=== PATIENT | female | born 2000 | race Caucasian/White ===

== ENCOUNTER 2023-03-18 16:19 | Emergency (ER) | payer OTHER, SELFPAY ==
--- OUTSIDE RECORDS SUMMARY | 2023-03-18 16:24 | XMS_ITS | Continuity of Care Document ---
Author Name [facility] Organization [facility] Care Team Providers Care Play Therapist Name Role Phone [facility] Unavailable Unavailable Allergies, Adverse Reactions, Alerts Combined list of allergies from Department of Defense and Veterans Affairs facilities. It does not include entries that were removed or entered in error. Substance Category Reaction Severity Reaction type Status Date Reported Comments Source No Known Allergies Drug allergy (disorder) active 05/16/2020 SERGIO Mann Encounters Combined list of: 1) Encounters from Department of Veterans Affairs facilities going back up to thelast 18 months. 2) Encounters from the Department of Defense facilities going back up to 280 months. Location Location Details Encounter Type Encounter Number Reason For Visit Attending Provider ADM Date DC Date Status Disposition Source SERGIO Mann([facility] F01A [facility] Tm 5) TELE CONSULT [id number] Notes Entered by: BAHMAN DEJESUS 21 Mar 2020 1122 ------- ------- ------- ------- -- nurse CLEMENTE Monsivais 03/21 SERGIO Mann([facility] F01[facility] Tm 5) SERGIO Mann([facility] Tm 5) TELE CONSULT [id number] 5 Notes Entered by: KHUSHI SAHA 12 May 2020 1259 ------- ------- ------- ------- -- COVID 19 NILS Sommer 05/12 SERGIO Mann([facility] F01A [facility] Tm 5) SERGIO Mann([facility]) OUTPATIENT [id number] [place] 05/12 Immediate Referral SERGIO Mann([facility]) SERGIO Mann([facility]) OUTPATIENT [id number] [place] 05/12 Released w/o Limitations Nick Orozco SERGIO([facility]) SERGIO Mann([facility] M[facility] I[facility] 1) OUTPATIENT [id number] [facility] [place] FOLLOW UP NEY GARCIA 05/16 Released w/o Limitations SERGIO Mann([facility] M01A IAC 1) Procedures Combined list of: 1) Procedures from Department of Veterans Affairs facilities going [facility] to [facility], not all [place] non-surgical procedures are included; 2) All procedures from the Department of Defense facilities. Procedure Procedure Type Code Date Perfomer Comments Sourc e Non-Physician Phone Call To Pt/Provider Intermed (11-20 min) Non-Physician Phone Call To Pt/Provider Intermed (11-20 min) [id number] CLEMENTE GOLDSTEIN DoD INFUSION, NORMAL SALINE SOLUTION , 1000 CC 05/12/2020 DoD TELE ASSESS & MGT SRV PROV QUAL NONPHYS HLTH CARE PRO TO EST PAT,PARENT,GUARD NOT ORIG REL ASSESS & MGT SRV PROV W/IN PREV 7 DAYS NOR LEAD ASSESS & MGT SRV/PX W/IN NXT 24H/SOON APT; 11-20 MIN MED DIS 03/21/2020 DoD Social History Combined list of available smoking, tobacco, and other social history from Department of Defense and Veterans Affairs facilities. Social History Type Response Date Comment Sourc e This section is an empty social history section. DoD
[2023-03-18 16:40] VITALS: BP 110/58; PULSE 105; RESP 16; TEMP 36.8; BMI 23.6
[2023-03-18] MEDS: LACTATED RINGERS 1000 ML 1,000 ML IV (17:09)
--- NOTE | 2023-03-18 17:24 | ED.GENADULT ---
HPI - General Adult General Chief complaint: Nausea/Vomiting Stated complaint: Sent from [facility], needs fluids Time Seen by Provider: 03/18/23 16:57 Source: patient Mode of arrival: ambulatory Limitations: no limitations History of Present Illness HPI narrative: 22-year-old female, at 7 weeks gestation presenting today with vomiting. Patient was seen at the clinic earlier only received 250 mL of LR before the IV blew. She was sent to the ER for further management. Last vomiting episode was approximately 21 hours ago. She took B6 and Unisom this morning which helped her symptoms significantly. She ready has a prescription for Zofran. And she received IV Zofran in the clinic. She has been without vomiting since arriving to the ED. She denies any other symptoms. Related Data Home Medications Medication Instructions Recorded Confirmed doxylamine succinate 25 mg tablet 25 mg PO QHS PRN 03/18/23 03/18/23 (Unisom (doxylamine)) pyridoxine (vitamin B6) 25 mg 25 mg PO ONCE 03/18/23 03/18/23 tablet Previous Rx's Medication Instructions Recorded ondansetron HCl 4 mg tablet 4 mg PO Q8H PRN nausea and 03/18/23 vomiting #30 tabs Allergies Allergy/AdvReac Type Severity Reaction Status Date / Time No Known Drug Allergies Allergy Verified 03/18/23 13:07 Review of Systems Status of ROS: Reports: 10 or more systems reviewed and unremarkable except as noted in History and below PFSH PFSH Family History Mother Breast cancer Melanoma High blood pressure High cholesterol Father High blood pressure High cholesterol Grandfather Colon cancer Grandfather Heart disease Grandmother Heart disease Social History Narrative: Paraprofessional. . Nonsmoker. Smoking Status: Never smoker How often do you have a drink containing alcohol: never How often do you have six or more drinks on one occasion: Never AUDIT-C Alcohol total score: 0 Non-prescribed substance use: denies use Exam Narrative: Exam Narrative: Well-nourished well-developed patient in no acute distress. Alert and oriented. Answers questions appropriately. Mood and affect are appropriate. Thoughts are goal oriented and rational. No tangential or magical thinking noted. Patient speaks in full sentences without needing to catch her breath. She does not appear ill or toxic. HEENT: Normocephalic atraumatic. Pupils are equally round reactive to light. Extraocular muscles are intact. Conjunctivae are moist without any icterus noted. Moist mucous membranes. Cardiovascular: Heart is regular rate and rhythm S1 and S2 are present without any murmurs. Lungs: Clear to auscultation bilaterally no wheezes rhonchi or rales are appreciated. Patient takes deep breaths without any discomfort. Abdomen: Soft and nontender nondistended with normal bowel sounds. Extremities: Bilateral lower extremities are without edema. Normal DP and PT pulses. Skin: Well perfused without any obvious rashes. Const: Vital Signs, click to edit/add: Vital Signs - 24 hr 03/18/23 16:40 Temperature 98.3 F Pulse Rate [Pulse Oximeter] 105 H Respiratory Rate 16 Blood Pressure [Ri ght Upper Arm] 110/58 L Course Course ED Course: Patient will receive 1 L of LR here. Patient did eat and was able to keep it down. Vital Signs Vital signs: Initial Vital Signs Temperature 98.3 F 03/18/23 16:40 Temperature Source Temporal Artery Scan 03/18/23 16:40 Pulse Rate 105 H 03/18/23 16:40 Respiratory Rate 16 03/18/23 16:40 Blood Pressure 110/58 L 03/18/23 16:40 Blood Pressure Mean 75 03/18/23 16:40 Blood Pressure Position Sitting 03/18/23 16:40 Vital Signs Temperature 98.3 F 03/18/23 16:40 Pulse Rate 105 H 03/18/23 16:40 Respiratory Rate 16 03/18/23 16:40 Blood Pressure 110/58 L 03/18/23 16:40 Temperature 98.3 F 03/18/23 16:40 Pulse Rate 105 H 03/18/23 16:40 Respiratory Rate 16 03/18/23 16:40 Blood Pressure 110/58 L 03/18/23 16:40 Medications Administered Medications: Discontinued Medications Generic Name Dose Route Start Last Admin Trade Name Freq PRN Reason Stop Dose Admin Lactated Ringer's 1,000 mls @ 1,000 mls/hr 03/18/23 16:50 03/18/23 18:10 Lactated Ringers 1000 Ml IV 03/18/23 17:49 Infused .Q1H ONE Infusion Medical Decision Making MDM Narrative Medical decision making narrative: 22-year-old female vomiting in . Treated per above. Follow-up with OBGYN. Discharge Plan Discharge Clinical Impression: Nausea and vomiting during Patient Disposition: Home, Self-Care Condition: Stable Instructions: Nausea and Vomiting in (ED) Additional Instructions: Continue to try to hydrate with small amounts of fluid very frequently throughout the day. Advanced her diet as tolerated. Follow-up with your OBGYN as scheduled. Prescriptions: No Action Unisom (doxylamine) 25 mg tablet 25 mg PO QHS PRN pyridoxine (vitamin B6) 25 mg tablet 25 mg PO ONCE ondansetron HCl 4 mg tablet 4 mg PO Q8H PRN (Reason: nausea and vomiting) Qty: 30 0RF Follow Up/Referrals: Provider,Not a Local [Primary Care Provider] - Stand Alone Forms: [employer]eth Info Instructions
--- OUTSIDE RECORDS SUMMARY | 2023-03-18 17:46 | XMS_ITS | Continuity of Care Document ---
Author Name [facility] Organization [facility] Care Team Providers Care Bench Worker Name Role Phone [facility] Unavailable Unavailable Allergies, Adverse Reactions, Alerts Combined [...] Date DC Date Status Disposition Source SERGIO Mann([facility] F01A [facility] Tm 5) TELE CONSULT [id number] Notes Entered by: BAHMAN DEJESUS 21 Mar 2020 1122 ------- ------- ------- ------- -- nurse CLEMENTE Monsivais 03/21 SERGIO Mann([facility] F01A [facility] Tm 5) SERGIO Mann([facility] F01A [facility] Tm 5) TELE CONSULT [id number] Notes Entered by: KHUSHI SAHA 12 May 2020 1259 ------- ------- ------- ------- -- COVID 19 NILS Sommer 05/12 SERGIO Mann([facility] F01A [facility] Tm 5) SERGIO Mann([facility]) OUTPATIENT [id number] [place] 05/12 Immediate Referral SERGIO Mann([facility]) SERGIO Mann([facility]) OUTPATIENT [id number] [place] 05/12 Released w/o Limitations Nick Orozco SERGIO([facility]) SERGIO Mann([facility] M[facility] 1) OUTPATIENT [id number] [facility] [place] FOLLOW UP NEY GARCIA 05/16 Released w/o Limitations SERGIO Mann([facility] M[facility] I[facility] 1) Procedures Combined list of: 1) Procedures from Department of Veterans Affairs facilities going [facility] to [facility], not all [place] non-surgical procedures are included; 2) All procedures from the Department of Defense facilities. Procedure Procedure Type Code Date Perfomer Comments Sourc e Non-Physician Phone Call To Pt/Provider Intermed (11-20 min) Non-Physician Phone Call To Pt/Provider Intermed (11-20 min) [id number] CLEMENTE GOLDSTEIN DoD INFUSION, NORMAL SALINE SOLUTION [...]
== END 2023-03-18 18:15 | disposition home or self-care (01) ==
LOC: ED 17:44
PROVIDERS: Emergency Provider Family Medicine
DX: O21.9 Vomiting of pregnancy, unspecified (principal); Z3A.01 Less than 8 weeks gestation of pregnancy
CPT/HCPCS: 96360; 99284; J7120

== ENCOUNTER 2023-03-28 14:22 | Outpatient (CLI) | payer OTHER, SELFPAY ==
--- OUTSIDE RECORDS SUMMARY | 2023-03-28 14:26 | XMS_ITS | Continuity of Care Document ---
Author Name [facility] Organization [facility] Care Team Providers Care Tobacco Feeder Catcher Name Role Phone [facility] Unavailable Unavailable Medications Combined list of outpatient medications from Department of Defense and Veterans [facility] facilities.Medications provided include 1) outpatient medications from the last 15 months, and 2) patient-reported medications. Medication Details Route Status Patient Instructions Prescription Expires Prescription Number Last Dispense Date Ordering Provider Order Date Source METOCLOPRAM GIN HCL (METOCLOPRA MIDE HCL), 10MG, TABLET, ORAL, TEVA [place], 500 ea. BOTTLE Active [id number] 4 2023 Pharmac y Data Transac tion Service Facilit y ONDANSETRON HCL (ondansetro n HCl), 4 MG, TABLET, ORAL, DASH PHARMACEUT, 30 ea. BOTTLE Active [id number] 4 2023 Pharmac y Data Transac tion Service Facilit y Allergies, Adverse Reactions, Alerts Combined list of allergies from Department of Defense and Veterans [facility] facilities. It does not include entries that [...] Date DC Date Status Disposition Source SERGIO Mann([facility] F01A [facility] Tm 5) TELE CONSULT [id number] 4 Notes Entered by: BAHMAN DEJESUS 21 Mar 2020 1122 ------- ------- ------- ------- -- nurse CLEMENTE Monsivais 03/21 SERGIO Mann([facility] F01A [facility] Tm 5) SERGIO Mann([facility] F01A [facility] Tm 5) TELE CONSULT [id number] Notes Entered by: KHUSHI SAHA 12 May 2020 1259 ------- ------- ------- ------- -- COVID 19 Nurse Soledad GOODSON NILS Senior 05/12 SERGIO Mann([facility] Tm 5) SERGIO Mann([facility]) OUTPATIENT [id number] BALAJI LOFTONLEY 05/12 Immediate Referral SERGIO Mann([facility]) SERGIO Mann([facility]) OUTPATIENT [id number] BALAJI LOFTONLEY 05/12 Released w/o Limitations SERGIO Mann([facility]) SERGIO Mann([facility] 1) OUTPATIENT [id number] [facility] [place] NE[place]ARCIA 05/16 Released w/o Limitations SERGIO Mann([facility] M01A [facility] 1) Procedures Combined list of: 1) Procedures from Department of Veterans Affairs facilities going back up to thelast 18 months, not all [place] non-surgical procedures are included; 2) All procedures from the Department of Defense facilities. Procedure Procedure Type Code Date Perfomer Comments Sour e Non-Physician Phone Call To Pt/Provider Intermed (11-20 min) Non-Physician Phone Call To Pt/Provider Intermed (11-20 min) [id number] CLEMENTE GOLDSTEIN DoD INFUSION, NORMAL SALINE SOLUTION [...] facilities. Social History Type Response Date Comment Sour e This section is an empty social history section. DoD
== END 2023-03-28 14:23 | disposition home or self-care (01) ==
PROVIDERS: Visit Provider Advanced Practice Midwife
DX: Z34.91 Encounter for supervision of normal pregnancy, unspecified, first trimester (principal); Z3A.08 8 weeks gestation of pregnancy
CPT/HCPCS: 76817; 82565; 82570; 84156; 84450; 84460; 84520; 84550; 86592; 86703; 86704; 86706; 86762; 86787; 86803; 86850; 86900; 86901; 87086; 87340

== ENCOUNTER 2023-04-05 12:53 | Outpatient (CLI) | payer OTHER, SELFPAY ==
--- OUTSIDE RECORDS SUMMARY | 2023-04-09 11:58 | XMS_ITS | Continuity of Care Document ---
Author Name [facility] Organization [facility] Care Team Providers Care Paving Stone Installer Name Role Phone [facility] Unavailable Unavailable Medications Combined list of outpatient medications from Department of Defense and Veterans [facility] facilities.Medications provided include 1) outpatient medications from the last 15 months, and 2) patient-reported medications. Medication Details Route Status Patient Instructions Prescription Expires Prescription Number Last Dispense Date Ordering Provider Order Date Source METOCLOPRAM GIN HCL (METOCLOPRA MIDE HCL), 10MG, TABLET, ORAL, TEVA [place], 500 ea. BOTTLE Active [id number] 4 2023 Pharmac y Data Transac tion Service Facilit y ONDANSETRON HCL (ondansetro n HCl), 4 MG, TABLET, ORAL, [employer] [place], 30 ea. BOTTLE Active [id number] 4 2023 Pharmac y Data Transac tion Service Facilit y Allergies, Adverse Reactions, Alerts Combined list of allergies from Department of Defense and Veterans [facility] facilities. It does not include entries that [...] Date DC Date Status Disposition Source SERGIO Mann([facility] F01A [facility] Tm 5) TELE CONSULT [id number] Notes Entered by: BAHMAN DEJESUS 21 Mar 2020 1122 ------- ------- ------- ------- -- nurse CLEMENTE Monsivais 03/21 SERGIO Mann([facility] F01A [facility] Tm [facility]) SERGIO Mann([facility] F01A [facility] Tm 5) TELE CONSULT [id number] Notes Entered by: KHUSHI SAHA 12 May 2020 1259 ------- ------- ------- ------- -- COVID 19 Nurse NILS Freeman 05/12 SERGIO Mann([facility] SERGIO Mann([facility]) OUTPATIENT [id number] [place] 05/12 Immediate Referral SERGIO Mann([facility]) SERGIO Mann([facility]) OUTPATIENT [id number] COOPER [place] 05/12 Released w/o Limitations SERGIO Mann([facility]) SERGIO Mann([facility] 1) OUTPATIENT [id number] [facility] [place] NEY GARCIA 05/16 Released w/o Limitations SERGIO Mann([facility] M01A [facility] 1) Procedures Combined list of: 1) Procedures from Department of Veterans Affairs facilities going back up to thelast 18 months, not all [place] non-surgical procedures are included; 2) All procedures from the Department of Defense facilities. Procedure Procedure Type Code Date Perfomer Comments Paulina tyson INFUSION, NORMAL SALINE SOLUTION , 1000 CC 05/12/2020 DoD TELE ASSESS & MGT SRV PROV QUAL NONPHYS HLTH CARE PRO TO EST PAT,PARENT,GUARD NOT ORIG REL ASSESS & MGT SRV PROV W/IN PREV 7 DAYS NOR LEAD ASSESS & MGT SRV/PX W/IN NXT 24H/SOON APT; 11-20 MIN MED DIS 03/21/2020 DoD Non-Physician Phone Call To Pt/Provider Intermed (11-20 min) Non-Physician Phone Call To Pt/Provider Intermed (11-20 min) [id number] CLEMENTE GOLDSTEIN DoD Social History Combined list of available smoking, tobacco, and other social history from Department of Defense and Veterans Affairs facilities. Social History Type Response Date Comment Sourshannon e This section is an empty social history section. DoD
== END 2023-04-05 12:54 | disposition home or self-care (01) ==
LOC: NFLDREF 04-09 11:56
PROVIDERS: Visit Provider Advanced Practice Midwife
DX: Z34.91 Encounter for supervision of normal pregnancy, unspecified, first trimester (principal)
CPT/HCPCS: 82565; 84450; 84460; 84520; 84550; 86592; 86703; 86704; 86706; 86762; 86787; 86803; 86850; 86900; 86901; 87340

== ENCOUNTER 2023-06-21 15:11 | Outpatient (CLI) | payer OTHER, BC, SELFPAY ==
--- OUTSIDE RECORDS SUMMARY | 2023-06-21 15:14 | XMS_ITS | Continuity of Care Document ---
Author Name [facility] Organization [facility] Care Team Providers Care Belting Inspector Name Role Phone [facility] Unavailable Unavailable Medications Combined list of outpatient medications from Department of [facility] and [facility] facilities.Medications provided include 1) outpatient medications from the last 15 months, and 2) patient-reported medications. Medication Details Route Status Patient Instructions Prescription Expires Prescription Number Last Dispense Date Ordering Provider Order Date Order Qty Source ACYCLOVIR (ACYCLOVIR) , 800 MG, TABLET, ORAL, Snapt PHARMA, 100 ea. BOTTLE Active [id number] 4 2023 20 Pharmac y Data Transac tion Service Facilit y METOCLOPRAM GIN HCL (METOCLOPRA MIDE HCL), 10MG, TABLET, ORAL, TEVA [place], 500 ea. BOTTLE Active [id number] 4 2023 30 Pharmac y Data Transac tion Service Facilit y ONDANSETRON HCL (ondansetro n HCl), 4 MG, TABLET, ORAL, [employer] [place], 30 ea. BOTTLE Active [id number] 4 2023 30 Pharmac y Data Transac tion Service Facilit y Allergies, Adverse Reactions, Alerts Combined list of allergies from Department of [facility] and [facility] facilities. It does not include entries [...] Date DC Date Status Disposition Source SERGIO Mann([facility] Tm [facility]) TELE CONSULT [id number] 4 Notes Entered by: BAHMAN DEJESUS 21 Mar 2020 1122 ------- ------- ------- ------- -- nurse CLEMENTE Monsivais 03/21 SERGIO Mann([facility] [place] Tm 5) SERGIO Mann([facility] [place] Tm 5) TELE CONSULT [id number] 5 Notes Entered by: KHUSHI SAHA 12 May 2020 1259 ------- ------- ------- ------- -- COVID 19 Nurse Soledad GOODSONNILS Nadeen 05/12 SERGIO Mann([facility] F01A [facility] Tm 5) SERGIO Mann([facility]) OUTPATIENT [id number] COOPER LOFTON 05/12 Immediate Referral SERGIO Mann([facility]) SERGIO Mann([facility]) OUTPATIENT [id number] COOPER LOFTON 05/12 Released w/o Limitations SERGIO Mann([facility]) SERGIO Mann([facility] M01A IAC 1) OUTPATIENT [id number] [facility] [place] NEY GARCIA 05/16 Released w/o Limitations SERGIO Mann([facility] M01A IAC 1) Procedures Combined list of: 1) Procedures from Department of Veterans Affairs facilities going back up to thelast 18 months, not all [place] non-surgical procedures are included; 2) All procedures from the Department of Defense facilities. Procedure Procedure Type Code Date Perfomer Comments Sourc e Non-Physician Phone Call To Pt/Provider Intermed (11-20 min) Non-Physician Phone Call To Pt/Provider Intermed (11-20 min) [id number] CLEMENTE GOLDSTEIN DoD INFUSION, NORMAL SALINE SOLUTION [...]
--- NOTE | 2023-06-21 15:30 | US_ITS ---
Patient: ESTELA HAYES Facility:?[facility] Patient ID:?[id number] Site Patient ID:?[id number]. Site :?[id number] Study:?US-OB Pelvis OB ANATOMY-06/21/2023 4:22:37 PM Ordering Physician:?BINDU LOZANO M.D. Final Report: HISTORY: anatomic survey. COMPARISON: None available of this gestation. TECHNIQUE: Ultrasound examination of the is performed with transabdominal technique. FINDINGS: A single intrauterine gestation is seen in cephalic presentation with regular cardiac activity at 159 beats per minute. The placenta is anterior and is free of the cervical os. The placental grade is 0 and the amniotic fluid volume is normal. Single deepest vertical pocket: Normal at 4.4 cm. The cervix is closed and is normal in length at 3.9 centimeters. BPD: 5.2 cm 21 weeks 5 days HC: 18.7 cm 21 weeks 0 days AC: 15.9 cm 21 weeks 0 days FL: 3.3 cm 20 weeks 2 days The estimated age by ultrasound is 21 weeks 2 days, with an estimated date of delivery of 10/30/2023. This correlates well with the clinical age of 20 weeks 6 days. The ultrasound ratios are normal. The estimated weight of 380 grams is at the 41st percentile based on the clinical dates. The anatomic survey demonstrates normal appearing intracranial structures with a normal septum pellucidum and normal cerebellum. The lateral ventricle is normal in diameter at 6 mm. The upper lip, 4 chamber heart, left and right ventricular outflow tracts, diaphragm, stomach, cord insertion site, 3-vessel cord, kidneys, bladder and spine are normal in appearance. IMPRESSION: 1. Single intrauterine gestation in cephalic presentation with regular cardiac activity. 2. Estimated gestational age is 21 weeks 2 days. 3. Estimated weight of 380 grams is at the 41st percentile based on the clinical dates. Dictated by Donte Dang MD @ 06/22/2023 12:20:49 PM Signed by:?Donte Dang MD @06/22/2023 12:20:49 PM (Electronic Signature)
== END 2023-06-21 15:12 | disposition home or self-care (01) ==
LOC: US 15:12
PROVIDERS: Visit Provider Obstetrics & Gynecology
DX: Z34.92 Encounter for supervision of normal pregnancy, unspecified, second trimester (principal); Z3A.21 21 weeks gestation of pregnancy
CPT/HCPCS: 76805

== ENCOUNTER 2023-08-09 06:55 | Outpatient (CLI) | payer OTHER, BC, SELFPAY ==
--- OUTSIDE RECORDS SUMMARY | 2023-08-09 06:57 | XMS_ITS | Continuity of Care Document ---
Author Name [facility] Organization [facility] Care Team Providers Care Mother Helper Name Role Phone [facility] Unavailable Unavailable Medications Combined list of outpatient medications from Department of [facility] and [facility] facilities.Medications provided include 1) outpatient medications from the last 15 months, and 2) patient-reported medications. Medication Details Route Status Patient Instructions Prescription Expires Prescription Number Last Dispense Date Ordering Provider Order Date Order Qty Source ACYCLOVIR (ACYCLOVIR) , 800 MG, TABLET, ORAL, [employer] PHARMA, 100 ea. BOTTLE Active [id number] 2023 20 Pharmac y Data Transac tion Service Facilit y METOCLOPRAM GIN HCL (METOCLOPRA MIDE HCL), 10MG, TABLET, ORAL, TEVA [place], 500 ea. BOTTLE Active [id number] 4 2023 30 Pharmac y Data Transac tion Service Facilit y ONDANSETRON HCL (ondansetro n HCl), 4 MG, TABLET, ORAL, [place] [employer] [place], 30 ea. BOTTLE Active [id number] 4 2023 30 Pharmac y Data Transac tion Service Facilit y Allergies, Adverse Reactions, Alerts Combined list of allergies from Department of [facility] and [facility] facilities. It does not include entries [...] Mann([facility] F01A FLH Tm 5) TELE CONSULT [id number] 4 Notes Entered by: BAHMAN DEJESUS 21 Mar 2020 1122 ------- ------- ------- ------- -- nurse covid deepika rodriguez CLEMENTE GOLDSTEIN 03/21 SERGIO Mann([facility] F01A [place] Tm 5) SERGIO Mann([facility] F01A [place] Tm 5) TELE CONSULT [id number] 5 Notes Entered by: KHUSHI SAHA 12 May 2020 1259 ------- ------- ------- ------- -- COVID 19 Nurse Deepika Rodriguez GOODSONNILS FAYE Nadeen 05/12 SERGIO Mann([facility] F01A [place] Tm 5) SERGIO Mann([facility]) OUTPATIENT [id number] [place] 05/12 Immediate Referral SERGIO Mann([facility]) SERGIO Mann([facility]) OUTPATIENT [id number] [place] 05/12 Released w/o Limitations SERGIO Mann([facility]) SERGIO Mann([facility] M01A IAC 1) OUTPATIENT [id number] [facility] FOLLOW UP NEY GARCIA 05/16 Released w/o Limitations SERGIO Mann([facility] M01A IAC 1) Procedures Combined list of: 1) Procedures from Department of Veterans Affairs facilities going back up to thelast 18 months, not all VA non-surgical procedures are included; 2) All procedures from the Department of Defense facilities. Procedure Procedure Type Code Date Perfomer Comments Sourc e INFUSION, NORMAL SALINE SOLUTION , 1000 CC [...] Phone Call To Pt/Provider Intermed (11-20 min) [id number] CLEMENTE GOLDSTEIN DoD Social History Combined list of available smoking, tobacco, and other social history from Department of Defense and Veterans Affairs facilities. Social History Type Response Date Comment Sour e This section is an empty social history section. DoD
[2023-08-09 07:03] VITALS: PULSE 82; O2SAT 98
[2023-08-09 07:08] VITALS: PULSE 87; O2SAT 98
[2023-08-09 07:14] VITALS: BP 122/67; PULSE 100
[2023-08-09 07:15] VITALS: TEMP 36.8
[2023-08-09 07:53] LABS: Appearance Urine Clear (Clear); Bilirubin Urine Negative (Negative); Blood Urine Negative (Negative); Color Urine Light yellow (Yellow); Glucose Urine Negative (Negative); Ketones Urine Negative (Negative); Leukocyte Esterase Urine Negative (Negative); Nitrite Urine Negative (Negative); Protein Urine Negative (Negative); Specific Gravity Urine 1.015 (1.000-1.030); Urobilinogen Urine 0.2 (0.2-1.0)
[2023-08-09] MEDS: ACETAMINOPHEN 500 MG TABLET 1000 MG PO (07:55)
[2023-08-09] MEDS: LACTATED RINGERS 500 ML 500 ML IV (07:57)
--- NOTE | 2023-08-09 08:57 | PC.OBNST ---
NST Note NST Note Start: 08/09/23 07:01 Freq: ONCE Status: Active Protocol: Document 08/09/23 08:54 ROSIESHARI (Rec: 08/09/23 08:56 MONICA [id number]) NST Note 1 Para (# of births) 0 EDC 11/02/23 Gestational Age In Weeks & Days 27 Weeks & 6 Days Patient Presented with Complaint(s) of Contractions/cramping Reactive Yes Appropriate for Gestational Age Yes [facility] Terrazas RNC Date 08/09/23 Reactive Yes Appropriate for Gestational Age Yes MC Damon RN Date 08/09/23 OB NST charge Yes Complete NST Note via Write Note Yes The provider's electronic signature indicates the NST is reactive/appropriate for gestational age. *Note to provider: If an addendum is required, open the patient's chart and click on the note under the Nurse/Allied Health tab.
--- NOTE | 2023-08-29 12:51 | PC.OBNST ---
NST Note NST Note Start: 08/09/23 07:01 Freq: ONCE Status: Complete Protocol: Document 08/09/23 08:54 MONICA (Rec: 08/09/23 08:56 MONICA [id number]) NST Note 1 Para (# of births) 0 EDC 11/02/23 Gestational Age In Weeks & Days 27 Weeks & 6 Days Patient Presented with Complaint(s) of Contractions/cramping Reactive Yes Appropriate for Gestational Age Yes [facility] Terrazas RNC Date 08/09/23 Reactive Yes Appropriate for Gestational Age Yes MC Damon RN Date 08/09/23 OB NST charge Yes Complete NST Note via Write Note Yes The provider's electronic signature indicates the NST is reactive/appropriate for gestational age. *Note to provider: If an addendum is required, open the patient's chart and click on the note under the Nurse/Allied Health tab.
== END 2023-08-09 08:50 | disposition home or self-care (01) ==
LOC: OB OUT 06:55 → OB 06:56
PROVIDERS: Visit Provider Obstetrics & Gynecology
DX: O47.02 False labor before 37 completed weeks of gestation, second trimester (principal); Z3A.27 27 weeks gestation of pregnancy
CPT/HCPCS: 59025; 81003; 87086; G0463; A9270; J7120

== ENCOUNTER 2023-08-15 08:50 | Outpatient (CLI) | payer OTHER, BC, SELFPAY ==
--- OUTSIDE RECORDS SUMMARY | 2023-08-19 14:41 | XMS_ITS | Continuity of Care Document ---
Author Name [facility] Organization [facility] Care Team Providers Care Assistant Speech Language Pathologist Name Role Phone [facility] Unavailable Unavailable Medications Combined list of outpatient medications from Department of [facility] and [facility] facilities.Medications provided include 1) outpatient medications from the last 15 months, and 2) patient-reported medications. Medication Details Route Status Patient Instructions Prescription Expires Prescription Number Last Dispense Date Ordering Provider Order Date Order Qty Source ACYCLOVIR (ACYCLOVIR) , 800 MG, TABLET, ORAL, [employer] PHARMA, 100 ea. BOTTLE Active [id number] 4 2023 20 Pharmac y Data Transac tion Service Facilit y METOCLOPRAM GIN HCL (METOCLOPRA MIDE HCL), 10MG, TABLET, ORAL, TEVA [place], 500 ea. BOTTLE Active [id number] 4 2023 30 Pharmac y Data Transac tion Service Facilit y ONDANSETRON HCL (ondansetro n HCl), 4 MG, TABLET, ORAL, [employer] [place], 30 ea. BOTTLE Active [id number] 4 2023 30 Pharmac y Data Transac tion Service Facilit y Allergies, Adverse Reactions, Alerts Combined list of allergies from Department of [facility] and [facility] facilities. It does not include entries [...] Mann([facility] F01A FLH Tm 5) TELE CONSULT [id number] 4 Notes Entered by: BAHMAN DEJESUS 21 Mar 2020 1122 ------- ------- ------- ------- -- nurse CLEMENTE Monsivais 03/21 SERGIO Mann([facility] F01A [place] Tm 5) [facility]GIO Mann([facility] [place] Tm 5) TELE CONSULT [id number] 5 Notes Entered by: KHUSHI SAHA 12 May 2020 1259 ------- ------- ------- ------- -- COVID 19 Nurse Soledad GOODSONNILS Nadeen 05/12 SERGIO Mann([facility] Tm 5) SERGIO Mann([facility]) OUTPATIENT [id number] [place] 05/12 Immediate Referral SERGIO Mann([facility] Medical [facility]) SERGIO Mann([facility]) OUTPATIENT [id number] [place] 05/12 Released w/o Limitations SERGIO Mann([facility]) SERGIO Mann([facility] M[facility] IAC 1) OUTPATIENT [id number] [facility] FOLLOW UP NEY GARCIA 05/16 Released w/o Limitations SERGIO Mann([facility] M[facility] IAC 1) Procedures Combined list [...] Phone Call To Pt/Provider Intermed (11-20 min) [id number] CLEMENTE GOLDSTEIN DoD INFUSION, NORMAL SALINE SOLUTION [...]
== END 2023-08-15 08:51 | disposition home or self-care (01) ==
LOC: NFLDREF 08-19 14:39
PROVIDERS: Visit Provider Obstetrics & Gynecology
DX: Z34.93 Encounter for supervision of normal pregnancy, unspecified, third trimester (principal); Z3A.28 28 weeks gestation of pregnancy
CPT/HCPCS: 86592

== ENCOUNTER 2023-09-16 10:38 | Outpatient (CLI) | payer OTHER, BC, SELFPAY ==
--- OUTSIDE RECORDS SUMMARY | 2023-09-16 10:39 | XMS_ITS | Continuity of Care Document ---
Author Name [facility] Organization [facility] Care Team Providers Care Brake Repairer Air Name Role Phone [facility] Unavailable Unavailable Medications Combined list of outpatient medications from Department of [facility] and [facility] facilities.Medications provided include 1) outpatient medications from the last 15 months, and 2) patient-reported medications. Medication Details Route Status Patient Instructions Prescription Expires Prescription Number Last Dispense Date Ordering Provider Order Date Order Qty Source ACYCLOVIR (ACYCLOVIR) , 800 MG, TABLET, ORAL, [employer] PHARMA, 100 ea. BOTTLE Active [id number] 4 2023 20 Pharmac y Data Transac tion Service Facilit y METOCLOPRAM GIN HCL (METOCLOPRA MIDE HCL), 10MG, TABLET, ORAL, TEVA [place], 500 ea. BOTTLE Active [id number] 4 2023 30 Pharmac y Data Transac tion Service Facilit y ONDANSETRON HCL (ondansetro n HCl), 4 MG, TABLET, ORAL, [employer] [place], 30 ea. BOTTLE Active [id number] 4 2023 30 Pharmac y Data Transac tion Service Facilit y Allergies, Adverse Reactions, Alerts Combined list of allergies from Department of [facility] and [facility] facilities. It [...] Mann([facility] F01A FLH Tm 5) TELE CONSULT [id number] 4 Notes Entered by: BAHMAN DEJESSU 21 Mar 2020 1122 ------- ------- ------- ------- -- nurse covid deepika rodriguez CLEMENTE GOLDSTEIN 03/21 SERGIO Mann([facility] F01A [place] Tm 5) SERGIO Mann([facility] F[facility]A [place] Tm 5) TELE CONSULT [id number] 5 Notes Entered by: KHUSHI SAHA 12 May 2020 1259 ------- ------- ------- ------- -- COVID 19 Nurse Deepika Rodriguez GOODSONNILS FAYE Nadeen 05/12 SERGIO Mann([facility] F01A [place] Tm 5) SERGIO Mann([facility]) OUTPATIENT [id number] [place] 05/12 Immediate Referral SERGIO Mann([facility]) SERGIO Mann([facility]) OUTPATIENT [id number] [place] 05/12 Released w/o Limitations SERGIO Mann([facility]) SERGIO Mann([facility] M01A IAC 1) OUTPATIENT [id number] [facility] [place] NEY GARCIA 05/16 Released w/o Limitations SERGIO Mann([facility] M01A IAC 1) Procedures Combined list [...] Phone Call To Pt/Provider Intermed (11-20 min) [id number] CLEMENTE GOLDSTEIN DoD Social History Combined list of available smoking, tobacco, and other social history from Department of Defense and Veterans Affairs facilities. Social History Type Response Date Comment Sour e This section is an empty social history section. DoD
--- NOTE | 2023-09-16 10:45 | CRLHL7_ITS ---
For Patients: As a result of the Century Cures Act, medical imaging exams and procedure reports are released immediately into your electronic medical record. You may view this report before your referring provider. If you have questions, please contact your health care provider. INDICATION: Third trimester scan, evaluate growth. uterine size date discrepancy. COMPARISON: 06/21/2023 TECHNIQUE: Real time nagy scale imaging of the fetus was performed. FINDINGS: Sonographic imaging demonstrates a single living intrauterine gestation. Fetus demonstrates a regular cardiac rate of 165 beats per minute. Fetus has a vertex position. The placenta lies anteriorly. Amniotic fluid volume appears normal and there is a single deepest vertical pocket: 6.3 cm. The estimated weight is 2500gm which lies at the 84th %. On the prior OB ultrasound exam dated 06/21/2023 the estimated weight was at the 41st%. BPD greater than 97th percentile. HC is 50th percentile. AC 95th percentile. FL 33rd percentile. The HC/AC ratio measures 0.99 range (0.93-1.11). IMPRESSION: Sonographic gestational age 34 weeks 5 days and sonographic due date 10/23/2023. Sonographic age 10 days ahead of the clinical age. Estimated weight 84th percentile. Abdominal circumference 95th percentile. BPD greater than 97th percentile. Dictated by Naveen Harper MD @ 09/17/2023 5:52:19 AM (Electronically Signed)
== END 2023-09-16 10:39 | disposition home or self-care (01) ==
LOC: US 10:38
PROVIDERS: Visit Provider Obstetrics & Gynecology
DX: O36.63X0 Maternal care for excessive fetal growth, third trimester, not applicable or unspecified (principal); Z3A.34 34 weeks gestation of pregnancy
CPT/HCPCS: 76816

== ENCOUNTER 2023-09-24 08:30 | Outpatient (CLI) | payer OTHER, BC, SELFPAY ==
--- OUTSIDE RECORDS SUMMARY | 2023-09-26 09:16 | XMS_ITS | Continuity of Care Document ---
Author Name [facility] Organization [facility] Care Team Providers Care Miller First Name Role Phone [facility] Unavailable Unavailable Medications Combined list of outpatient medications from Department of [facility] and [facility] facilities.Medications provided include 1) outpatient medications from the last 15 months, and 2) patient-reported medications. Medication Details Route Status Patient Instructions Prescription Expires Prescription Number Last Dispense Date Ordering Provider Order Date Order Qty Source ACYCLOVIR (ACYCLOVIR) , 800 MG, TABLET, ORAL, [employer] PHARMA, 100 ea. BOTTLE Active [id number] 2023 20 Pharmac y Data Transac tion Service Facilit y METOCLOPRAM GIN HCL (METOCLOPRA MIDE HCL), 10MG, TABLET, ORAL, TEVA [place], 500 ea. BOTTLE Active [id number] 4 2023 30 Pharmac y Data Transac tion Service Facilit y ONDANSETRON HCL (ondansetro n HCl), 4 MG, TABLET, ORAL, [employer] [place], 30 ea. BOTTLE Active [id number] 4 2023 30 Pharmac y Data Transac tion Service Facilit y Allergies, Adverse Reactions, Alerts Combined list of allergies from Department of [facility] and [facility] facilities. It [...] Mann([facility] F01A FLH Tm 5) TELE CONSULT [id number] 4 Notes Entered by: BAHMAN DEJESUS 21 Mar 2020 1122 ------- ------- ------- ------- -- nurse covid deepika rodriguez CLEMENTE GOLDSTEIN 03/21 SERGIO Mann([facility] F01A [place] Tm 5) SERGIO Mann([facility] F01A [place] Tm 5) TELE CONSULT [id number] 5 Notes Entered by: KHUSHI SAHA 12 May 2020 1259 ------- ------- ------- ------- -- COVID 19 Nurse Deepika Rodriguez GOODSONNILS FAYE Nadeen 05/12 SERGIO Mann([facility] F01A [place] Tm 5) SERGIO Mann([facility]) OUTPATIENT [id number] [place] 05/12 Immediate Referral SERGIO Mann([facility]) SERGIO Mann([facility]) OUTPATIENT [id number] [place] 05/12 Released w/o Limitations SERGIO Mann([facility]) SERGIO Mann([facility] M01A IAC 1) OUTPATIENT [id number] [facility] [place] NEY GARCIA 05/16 Released w/o Limitations SERGIO Mann([facility] M01A IAC 1) Procedures Combined [...] Phone Call To Pt/Provider Intermed (11-20 min) [phone] CLEMENTE GOLDSTEIN DoD Social History Combined list of available smoking, tobacco, and other social history from Department of Defense and Veterans Affairs facilities. Social History Type Response Date Comment Sour e This section is an empty social history section. DoD
== END 2023-09-24 08:31 | disposition home or self-care (01) ==
LOC: NFLDREF 09-26 09:14
PROVIDERS: Visit Provider Obstetrics & Gynecology
DX: Z34.93 Encounter for supervision of normal pregnancy, unspecified, third trimester (principal); Z3A.34 34 weeks gestation of pregnancy
CPT/HCPCS: 82728

== ENCOUNTER 2023-10-08 09:27 | Outpatient (CLI) | payer OTHER, BC, SELFPAY ==
--- OUTSIDE RECORDS SUMMARY | 2023-10-08 09:30 | XMS_ITS | Continuity of Care Document ---
Author Name [facility] Organization [facility] Care Team Providers Care Scientific Illustrator Name Role Phone [facility] Unavailable Unavailable Medications Combined list of outpatient medications from Department of [facility] and [facility] facilities.Medications provided include 1) outpatient medications from the last 15 months, and 2) patient-reported medications. Medication Details Route Status Patient Instructions Prescription Expires Prescription Number Last Dispense Date Ordering Provider Order Date Order Qty Source ACYCLOVIR (ACYCLOVIR) , 800 MG, TABLET, ORAL, [employer] PHARMA, 100 ea. BOTTLE Active [id number] 2023 20 Pharmac y Data Transac tion Service Facilit y METOCLOPRAM GIN HCL (METOCLOPRA MIDE HCL), 10MG, TABLET, ORAL, TEVA [place], 500 ea. BOTTLE Active [id number] 4 2023 30 Pharmac y Data Transac tion Service Facilit y ONDANSETRON HCL (ondansetro n HCl), 4 MG, TABLET, ORAL, [employer] [place], 30 ea. BOTTLE Active [id number] 2023 30 Pharmac y Data Transac tion Service Facilit y Allergies, Adverse Reactions, Alerts Combined list of allergies from Department of [facility] and [facility] facilities. It does not include [...] Mann([facility] F01A FLH Tm 5) TELE CONSULT [id number] 4 Notes Entered by: BAHMAN DEJESUS 21 Mar 2020 1122 ------- ------- ------- ------- -- nurse CLEMENTE Monsivais 03/21 SERGIO Mann([facility] F01A [place] Tm 5) SERGIO Mann([facility] F01A [place] Tm 5) TELE CONSULT [id number] 5 Notes Entered by: KHUSHI SAHA 12 May 2020 1259 ------- ------- ------- ------- -- COVID 19 Nurse Soledad GOODSONNILS Nadeen 05/12 SERGIO Mann([facility] F01A [facility] Tm 5) SERGIO Mann([facility]) OUTPATIENT [id number] [place] 05/12 Immediate Referral SERGIO Mann([facility] Medical [facility]) SERGIO Mann([facility]) OUTPATIENT [id number] [place] 05/12 Released w/o Limitations SERGIO Mann([facility]) SERGIO Mann([facility] M01A IAC 1) OUTPATIENT [id number] [facility] FOLLOW UP NEY GARCIA 05/16 Released w/o Limitations SERGIO Mann([facility] M01A IAC 1) Procedures Combined list [...] Phone Call To Pt/Provider Intermed (11-20 min) [phone] CLEMENTE GOLDSTEIN DoD INFUSION, NORMAL SALINE SOLUTION [...]
[2023-10-09 12:23] LABS: Strep B DNA Probe Negative (Negative)
[2023-10-09 12:31] LABS: Strep B Susceptibility Needed? No
== END 2023-10-08 09:28 | disposition home or self-care (01) ==
LOC: NFLDREF 09:28
PROVIDERS: Visit Provider Obstetrics & Gynecology
DX: Z34.93 Encounter for supervision of normal pregnancy, unspecified, third trimester (principal); Z3A.36 36 weeks gestation of pregnancy
CPT/HCPCS: 87081; 87653

== ENCOUNTER 2023-10-15 09:51 | Outpatient (CLI) | payer OTHER, BC, SELFPAY ==
--- OUTSIDE RECORDS SUMMARY | 2023-10-15 09:53 | XMS_ITS | Continuity of Care Document ---
Author Name [facility] Organization [facility] Care Team Providers Care Roping Machine Tender Name Role Phone [facility] Unavailable Unavailable Medications Combined list of outpatient medications from Department of [facility] and [facility] facilities.Medications provided include 1) outpatient medications from the last 15 months, and 2) patient-reported medications. Medication Details Route Status Patient Instructions Prescription Expires Prescription Number Last Dispense Date Ordering Provider Order Date Order Qty Source ACYCLOVIR (ACYCLOVIR) , 800 MG, TABLET, ORAL, [employer] PHARMA, 100 ea. BOTTLE Active [id number] 4 2023 20 Pharmac y Data Transac tion Service Facilit y METOCLOPRAM GIN HCL (METOCLOPRA MIDE HCL), 10MG, TABLET, ORAL, TEVA [place], 500 ea. BOTTLE Active [id number] 4 2023 30 Pharmac y Data Transac tion Service Facilit y ONDANSETRON HCL (ondansetro n HCl), 4 MG, TABLET, ORAL, [employer] US, 30 ea. BOTTLE Active [id number] 4 2023 30 Pharmac y Data Transac tion Service Facilit y Allergies, Adverse Reactions, Alerts Combined list of allergies from Department of [facility] and [facility] facilities. It does not include entries [...] Mann([facility] F01A FLH Tm 5) TELE CONSULT [id number] 4 Notes Entered by: BAHMAN DEJESUS 21 Mar 2020 1122 ------- ------- ------- ------- -- nurse CLEMENTE Monsivais 03/21 SERGIO Mann([facility] F01A [place] Tm 5) SERGIO Mann([facility] F01A [place] Tm 5) TELE CONSULT [id number] 5 Notes Entered by: KHUSHI SAHA 12 May 2020 1259 ------- ------- ------- ------- -- COVID 19 Nurse Soledad GOODSONNILS Nadeen 05/12 SERGIO Mann([facility] F01A [facility] Tm 5) SERGIO Mann([facility]) OUTPATIENT [id number] [place] 05/12 Immediate Referral SERGIO Mann([facility]) SERGIO Mann([facility]) OUTPATIENT [id number] [place] 05/12 Released w/o Limitations SERGIO Mann([facility]) SERGIO Mann([facility] M01A IAC 1) OUTPATIENT [id number] [facility] [place] NEY GARCIA 05/16 Released w/o Limitations SERGIO Mann([facility] M01A IAC 1) Procedures Combined list [...] Phone Call To Pt/Provider Intermed (11-20 min) [phone] CLEMENTE GOLDSTEIN DoD INFUSION, NORMAL SALINE SOLUTION [...]
--- NOTE | 2023-10-15 10:15 | CRLHL7_ITS ---
For Patients: As a result of the Century Cures Act, medical imaging exams and procedure reports are released immediately into your electronic medical record. You may view this report before your referring provider. If you have questions, please contact your health care provider. INDICATION: Decreased movement COMPARISON: 09/16/2023 TECHNIQUE: Real-time nagy-scale imaging of the pelvis was performed. FINDINGS: heart rate 154 beats per minute. Vertex position. Single deepest pocket 6.5 cm. GORDON 19.9 cm. IMPRESSION: Unremarkable. Dictated by Naveen Harper MD @ 10/15/2023 10:22:46 AM (Electronically Signed)
== END 2023-10-15 09:52 | disposition home or self-care (01) ==
LOC: US 09:52
PROVIDERS: Visit Provider Obstetrics & Gynecology
DX: O36.8190 Decreased fetal movements, unspecified trimester, not applicable or unspecified (principal)
CPT/HCPCS: 76815

== ENCOUNTER 2023-10-29 15:54 | Inpatient (IN) | payer BC, OTHER, SELFPAY ==
--- OUTSIDE RECORDS SUMMARY | 2023-10-29 15:57 | XMS_ITS | Continuity of Care Document ---
Author Name [facility] Organization [facility] Care Team Providers Care Medical Accounting Clerk Name Role Phone [facility] Unavailable Unavailable Medications Combined list of outpatient medications from Department of [facility] and [facility] facilities.Medications provided include 1) outpatient medications from the last 15 months, and 2) patient-reported medications. Medication Details Route Status Patient Instructions Prescription Expires Prescription Number Last Dispense Date Ordering Provider Order Date Order Qty Source ACYCLOVIR (ACYCLOVIR) , 800 MG, TABLET, ORAL, [employer] PHARMA, 100 ea. BOTTLE Active [id number] 4 2023 20 Pharmac y Data Transac tion Service Facilit y METOCLOPRAM GIN HCL (METOCLOPRA MIDE HCL), 10MG, TABLET, ORAL, TEVA [place], 500 ea. BOTTLE Active [id number] 4 2023 30 Pharmac y Data Transac tion Service Facilit y ONDANSETRON HCL (ondansetro n HCl), 4 MG, TABLET, ORAL, [employer] [place], 30 ea. BOTTLE Active [id number] 4 2023 30 Pharmac y Data Transac tion Service Facilit y Allergies, Adverse Reactions, Alerts Combined list of allergies from Department of [facility] and [facility] facilities. It [...] Mann([facility] F01A FLH Tm 5) TELE CONSULT [id number] Notes Entered by: BAHMAN DEJESUS 21 Mar 2020 1122 ------- ------- ------- ------- -- nurse covid CLEMENTE Mohr 03/21 SERGIO Mann([facility] F01A [place] Tm 5) SERGIO Mann([facility] F01A [place] Tm 5) TELE CONSULT [id number] 5 Notes Entered by: KHUSHI SAHA 12 May 2020 1259 ------- ------- ------- ------- -- COVID 19 Nurse Merarii elenita GOODSONNILS Nadeen 05/12 SERGIO Mann([facility] F01A [place] Tm 5) SERGIO Mann([facility]) OUTPATIENT [id number] [place] 05/12 Immediate Referral SERGIO Mann([facility]) SERGIO Mann([facility]) OUTPATIENT [id number] [place] 05/12 Released w/o Limitations SERGIO Mann([facility]) SERGIO Mann([facility] M01A IAC 1) OUTPATIENT [id number] [facility] [place] FOLLOW UP NEY GARCIA 05/16 Released w/o Limitations SERGIO Mann([facility] M01A IAC 1) Procedures Combined list of: 1) Procedures from Department of Veterans Affairs facilities going back up to thelast 18 months, not all VA non-surgical procedures are included; 2) All procedures from the Department of Defense facilities. Procedure Procedure Type Code Date Perfomer Comments Sour e Non-Physician Phone Call To Pt/Provider Intermed (11-20 min) Non-Physician Phone Call To Pt/Provider Intermed (11-20 min) [id number] CLEMENTE GOLDSTEIN Social History Combined list of available smoking, tobacco, and other social history from Department of Defense and Veterans Affairs facilities. Social History Type Response Date Comment Sourc e This section is an empty social history section. DoD
[2023-10-29 16:21] VITALS: BP 133/66; PULSE 87; PULSE 89; O2SAT 96
[2023-10-29 16:28] VITALS: BMI 28.8
--- NOTE | 2023-10-29 17:11 | W.PM.LDBA ---
Subjective History of Present Illness Time Seen by Provider: 16:50 Date Seen: 10/29/23 Narrative: Patient is being admitted to Labor and Delivery for cervical ripening/induction of labor. She is a 23 year old at 39 3/7 weeks gestation. Her full history and physical was dictated by Dr. Gutierrez on 10/15/2023. Please see this for details. The patient feels well today. She is unaware of contractions. She does have some pressure in the pelvis. She had a cervical exam yesterday by Dr. Thornton, and her cervix was noted to be closed at that time. Cervical ripening with misoprostol had been discussed. Specific Issues/Plans : Harjinder H&P by CGM on 10/15/23 [id number] Negative # Mitral valve prolapse with mild regurgitation, already established with cardiology -Saw cardiology and MFM 04/24: No additional risk in , anesthesia per patient preference. -ECHO normal 04/08/23. -Repeat echo on 08/21/2023: Normal LV size, normal wall thickness, normal global systolic function with an estimated EF of 55-60%. Right ventricular cavity size is normal, global systolic RV function is normal. The mitral valve is eczematous, mild mitral regurgitation. Mild mitral valve prolapse. No significant changes from previous exam on March 2023. # Size<dates - growth US on 09/16/2023: EFW of 2500 g, 84th percentile - AC at 95%ile, BPD >97%ile, HC 50%ile, FL 33%ile. # Mildly elevated liver enzymes per annual 03/02, was to return for follow up, and then occurred -preeclampsia labs at [facility] to repeat baseline labs, WNL # Prediabetic per annual exam 03/02 (hgbA1C 5.9) - consider 20 week early glucose test - WNL at 115mg/dL COVID: declines Flu:declines TDAP:08/30/23 RSV: NA 32wk Mental Health: done 34wk: Hgb: 10.6 GBS: negative OB - Problem Based A/P Additional Plan (1) Encounter for induction of labor: Status: Acute Plan Admit to the center for cervical ripening and labor induction of labor. Induction methods reviewed. Patient's questions addressed. Delivery/Labor/Induction Plan Induction method: per misoprostol protocol OB Result Labs Blood Type: A (+) positive Rubella: immune RPR/VDLR: nonreactive GBS Status: negative HBsAG: negative OB Exam Physical Exam Vital signs: Pulse BP Pulse Ox 87 133/66 96 10/29/23 16:21 10/29/23 16:21 10/29/23 16:21 Detailed Labor and Delivery Exam Patient Gravid: Yes Dilation (cm): 0 Fetus (Single) Heart Rate Baseline: 140 Monitor Accelerations: Present Monitor Decelerations: None Heel Breaster Variability: Moderate (6-25)
[2023-10-29 17:38] LABS: Basophils Absolute Auto 0.03 K/uL (0.00-0.30); Basophils Percent Auto 0.3 % (0.0-3.0); Eosinophils Absolute Auto 0.04 K/uL (0.00-0.50); Eosinophils Percent Auto 0.4 % (0.0-7.0); Hematocrit 33.7 % (33.0-51.0); Hemoglobin* 11.1 gm/dL (12.0-16.0); Immature Granulocytes Abs Auto 0.08 K/uL (0.00-0.30); Immature Granulocytes Pct Auto 0.8 %; Lymphocytes Percent Auto 15.2 % (20-44); Mean Corpuscular HGB Conc 33 gm/dL (32-36); Mean Corpuscular Hemoglobin 29 pg (26-34); Mean Corpuscular Volume 89 fL (80-100); Monocytes Percent Auto 7.5 % (0.0-11.0); Neutrophils Percent Auto 75.8 % (42.0-72.0); Platelet Count* 230 K/uL (140-440); RDW Coefficient of Variation % 13.3 % (11.5-15.5); Red Blood Count 3.77 m/uL (4.00-5.20); White Blood Count* 10.38 K/uL (4.50-11.00)
[2023-10-29 17:48] LABS: Slide Review Reflex No
[2023-10-29] MEDS: miSOPROStoL 25 MCG/0.25 TABLET VAGINAL ×2 (18:44→21:49)
[2023-10-29 19:38] VITALS: BP 125/62; PULSE 82
[2023-10-29 19:40] VITALS: BP 125/62; PULSE 82; PULSE 89; RESP 19; TEMP 37.3; O2SAT 96
[2023-10-29] MEDS: hydrOXYzine pamoate 25 MG CAPSULE 100 MG PO (21:47)
[2023-10-29] MEDS: MORPHINE 10 MG/ML inj IM (21:47)
[2023-10-29 22:02] VITALS: BP 116/56; PULSE 72; PULSE 89; RESP 19; TEMP 36.7; O2SAT 96
[2023-10-30] VITALS (43 sets, daily range): BP systolic 100–192; BP diastolic 51–161; PULSE 74–164; RESP 16–18; TEMP 36.2–37.1; O2SAT 93–100
[2023-10-30] MEDS: miSOPROStoL 25 MCG/0.25 TABLET VAGINAL (01:02)
--- NOTE | 2023-10-30 07:30 | P.OBPN_ITS ---
Subjective Time Seen by Provider: 09:59 Date Seen: 10/30/23 Narrative: Ms. Ulrich is a 23yo at 39w4d GA admitted for elective IOL in the setting of suspected macrosomia. is complicated by mitral valve prolapse with mild regurgitation (normal echo 04/03 and 09/01) and prediabetes with normal GDM screen. Kelsey is feeling well. She notes labor picked up significantly after I spoke to her this morning. She is now comfortable s/p epidural. IOL progress has included cytotec x3 and low dose pitocin (highest dose was 3mu/min, at 1mu/min at present). Denies vaginal bleeding or leaking of fluids. Objective Exam: General: Alert and oriented, in no acute distress Psych: Appropriate mood and affect Abdomen: Gravid. EFW 3700g by [place]. Last US on 09/15 the EFW was 2500g at 84%ile, AC 95%ile. Cervix: 6/90/0, s/p AROM with return of blood tinged fluid. No meconium. FHR: Category 1: Baseline 150bpm, moderate variability, accelerations present and early decelerations noted [place]: Molly Q2-5 minutes Vital Signs: Last Vital Signs Temp 98.2 F 10/30/23 05:10 Pulse 86 10/30/23 05:10 Resp 18 10/30/23 05:10 BP 129/69 10/30/23 05:10 Pulse Ox 96 10/30/23 05:10 Assessment Heart Rate Baseline: 140 Monitor Accelerations: Present Monitor Decelerations: None Plan Plan: Kelsey is a 23yo at 39w4d GA admitted for elective IOL in the setting of suspected macrosomia. is complicated by mitral valve prolapse with mild regurgitation (normal echo 04/03 and 09/01) and prediabetes with normal GDM screen. IOL course has included cytotec x3, low dose pitocin and now AROM at 6/90/0. Pitocin was only at 1mu/min at time of AROM, where clinical picture is likely consistent with transition into active labor. As such, plan to stop pitocin and see how contractions/labor progress expectantly. Plan to resume pitocin if contractions space our or with inadequate cervical change at next exam in 2 hours. My EFW is 3700g by Pedro's. BT A+, GBS negative.
[2023-10-30] MEDS: LACTATED RINGERS 1000 ML 1,000 ML 125 ML IV ×2 (07:37→09:13)
[2023-10-30] MEDS: OXYTOCIN 30 unit/500 ML in NS 30 UNIT/500 ML BAG IVPB (07:39)
[2023-10-30] MEDS: LIDOCAINE 2% (PF) 5 ML VIAL EPIDURAL (08:56)
[2023-10-30] MEDS: ROPIVACAINE 0.2% 100 ml 100 ML 12 MG EPIDURAL (08:56)
--- NOTE | 2023-10-30 09:03 | P.ANBPRC_ITS ---
PFSH PFSH Family History Mother Breast cancer Melanoma High blood pressure High cholesterol Father High blood pressure High cholesterol Grandfather Colon cancer Grandfather Heart disease Grandmother Heart disease Social History Narrative: Paraprofessional. . Nonsmoker. SOCIAL? ? Education: some college? ? Work: paraprofessional. ? ? Partner: Harjinder, , [employer] tech? ? Lives with: Harjinder? ? Pets: dogs? ? Abuse: Denies past Unable to assess current, partner present? ? Special Diet: Denies? ? Ok with a blood transfusion: yes? ? Culture or lutheran beliefs: denies? RISK FACTORS? ? Exercise Times/wk: occasionally? ? Depression/Anxiety: denies? ? Previous Treatments denies Therapy denies BETTE: 0 PHQ 9: 7? ? Seat Belt Use: Routinely ? Smoking: Denies past/present? ? Alcohol/day: Denies while ? ? Caffeine: none? ? Drug Use: Denies past/present? ? What is your current living situation?: I presently have a place to live Problems where you live: no known problems In the past 12 months, utilities in danger of being shut off: no In past 12 months, lack of transportation kept you from medical appts, meetings, work, or getting things needed for daily living: no In the past 12 mos, have been you worried that your food would run out before you had money to buy more?: never true In the past 12 mos, the food you bought just didn't last and you didn't have money to buy more?: never true Smoking Status: Never smoker How often do you have a drink containing alcohol: never How often do you have six or more drinks on one occasion: Never AUDIT-C Alcohol total score: 0 Non-prescribed substance use: denies use How often does anyone, including family, friends and others, physically hurt you : never How often does anyone, including family, friends and others, insult or talk down to you: never How often does anyone, including family, friends and others, threaten you with harm: never How often does anyone, including family, friends and others, scream or curse at you: never Little interest or pleasure in doing things: not at all Feeling down, depressed, or hopeless: not at all Meds Home Medications and Allergies Home Medications ?Medication ?Instructions ?Recorded ?Confirmed ?Type docosahexaenoic acid 200 mg 1 mg PO DAILY 05/24/23 10/29/23 History capsule ( DHA) Allergies Allergy/AdvReac Type Severity Reaction Status Date / Time No Known Drug Allergies Allergy Verified 10/28/23 08:53 Results Labs Labs: Laboratory Results - last 24 hr 10/29/23 17:28 WBC 10.38 RBC 3.77 L Hgb 11.1 L Hct 33.7 MCV 89 MCH 29 MCHC 33 RDW Coeff of Autumn 13.3 Plt Count 230 Neut % (Auto) 75.8 H Lymph % (Auto) 15.2 L [place] % (Auto) 7.5 Eos % (Auto) 0.4 Baso % (Auto) 0.3 Neut # (Auto) 7.90 H Lymph # (Auto) 1.60 [place] # (Auto) 0.80 Eos # (Auto) 0.04 Baso # (Auto) 0.03 Abs Immat Gran (auto) 0.08 Imm/Tot Granulo (auto) 0.8 Blood Type A Positive Antibody Screen NEGATIVE Vital Signs Vital Signs: Last Vital Signs Temp 97.8 F 10/30/23 07:35 Pulse 90 10/30/23 09:00 Resp 18 10/30/23 05:10 BP 115/57 L 10/30/23 09:00 Pulse Ox 99 10/30/23 09:02 Weight: 85.82 kg Height: 172.72 cm Anesthesia Procedures Epidural Insertion Patient Location: OB Reason for Block: procedure for pain Patient Position: sitting Performed By: Mackenzie Sullivan Preanesthetic Checklist: IV checked, risks and benefits discussed, monitors and equipment checked, pre-op evaluation, timeout performed and anesthesia consent Prep: chlorhexidine gluconate Monitoring: blood pressure monitoring, continuous pulse oximetry and heart rate Approach: midline Vertebral Space: lumbar (1-5) Epidural Technique: WAYNE saline Needle Type: Tuohy needle Injection Technique: continuous catheter (continuous catheter) Needle gauge: 17 Needle Length (cm): 10 cm Needle Insertion Depth (cm): 7 Catheter Gauge: 19 Catheter Type: multi-orifice Catheter at skin depth (cm): 15 Test Dose Result: negative and lidocaine 1.5% with epinephrine 1 to 200,000
--- NOTE | 2023-10-30 11:53 | PM.OBPNL ---
Objective Vital Signs: Last Vital Signs Temp 98.8 F 10/30/23 09:33 Pulse 89 10/30/23 11:49 Resp 18 10/30/23 05:10 BP 100/61 10/30/23 11:49 Pulse Ox 98 10/30/23 09:22 Assessment Heart Rate Baseline: 140 Monitor Accelerations: Present Monitor Decelerations: None
[2023-10-30] MEDS: LACTATED RINGERS 1000 ML 1,000 ML 1125 ML IV (12:14)
--- NOTE | 2023-10-30 15:50 | W.PM.VAGDEL1 ---
Procedure Procedure Done: Global Procedure Details: Normal spontaneous vaginal delivery Vaginal laceration repair Events: Labor Induction Intrapartal Events: Labor Induction Delivery augmentation: rupture of membranes and pitocin Delivery monitor: external FHT Route of delivery: Laceration description: Vaginal - 1st Degree Delivery repair: Vicryl Estimated blood loss (mL): 395 Anesthesia type: Epidural Disposition: floor Complications: None Narrative: Ms. Ulrich is a 23yo at 39w4d GA admitted for elective IOL in the setting of suspected macrosomia. is complicated by mitral valve prolapse with mild regurgitation (normal echo 04/03 and 09/01) and prediabetes with normal GDM screen. Her labor was induced with vaginal cytotec and augmented with pitocin and AROM. Epidural were utilized for pain management. Status of bag of cr: AROM performed with return of blood tinged clear fluid. heart tones during active labor were category 1 and 2. She was found to be complete and +2, direct OA position at 1144. She started pushing at 1218 and made excellent descent across maternal expulsive efforts. She had a at 1236. Baby delivered OA, restituted VITA and the anterior and posterior shoulders delivered without difficulty. Loose nuchal cord was noted, delivered through and reduced at the perineum. The cord was clamped and cut after delayed cord clamping. Active management of the third stage was initiated with pitocin and gentle traction on the umbilical cord, and the placenta delivered spontaneous and intact at 1243. Cord gases sent: no Cord blood sent for infant ABO: no Perineum and vagina were inspected, and the following lacerations were noted: complex left vaginal side wall laceration with extension up the left labia, more distal right vaginal laceration extending up the right labia as well. Repair was completed with running locking fashion of 2-0 vicryl on the left, ultimately this was tied just inside the hymenal ring. The same was performed on the right. The superficial separation of the right labia was closed with two interrupted throws of 3-0 vicryl. On the left, the labial laceration was closed in a running subcuticular fashion with 3-0 vicryl. Small oozing was noted to be persistent at the left vaginal margin, where several figure of eight throws were applied to reinforce hemostasis. Excellent improvement in hemostasis was noted. The bladder was emptied with 100cc via I/O, vaginal packing inserted to apply additional pressure. Uterine tone was noted be excellent throughout. Excellent hemostasis was noted again. Total EBL of 395mL. All counts were correct. Mother and in stable condition following the .? details: - Liveborn female - Weight 3550g - APGARs were 8 and 9 at 1 and 5 minutes respectively - No cord gas or ABO testing indicated [place] Infant Gender: Female presentation: vertex Placental Delivery Description: Spontaneous Cord Description: 3 Vessels total score - 1 minute: 8 total score - 5 minute: 9
[2023-10-30] MEDS: IBUPROFEN 600 MG TABLET PO ×2 (16:20→22:37)
--- NOTE | 2023-10-30 16:59 | P.OBPN_ITS ---
OB - PN:Subj Subjective Time Seen by Provider: 16:15 Date Seen: 10/30/23 Interval history: Kelsey is s/p complicated by bilateral vaginal lacerations with extension to the labia, requiring repair in the delivery room and vaginal packing. Total QBL was 395mL from delivery. I/O performed before vag packing insertion. Patient notes she is feeling well. Denies any pain or bleeding around the pack. She notes she can move her legs, is hopeful to ambulate soon. VS reviewed and are WNL. Fundal tone is firm, 1 below umbilicus. Vaginal packing was removed, noted to be largely saturated throughout. Fundal massage performed to evacuate any blood/clots above packing. Initially, there was some question of persistent trickling. I reexamined the lacerations and they are noted to be hemostatic. Observed for several minutes with no persistent excess bleeding. Plan expectant management and routine cares at this time. If her bleeding picks up, low threshold to return to bedside for re-examination. Would consider reinsertion of vaginal packing and rao vs OR repair for heavy bleeding. Plan routine PP hemoglobin in the morning, sooner as clinically indicated. All questions answered. Patient expressed understanding and is agreeable to plan. OB - PN: Obj Exam Physical Exam: Vital signs: Temp Pulse Resp BP Pulse Ox O2 Del Method 98.2 F 108 H 16 109/72 97 Room Air 10/30/23 16:43 10/30/23 16:43 10/30/23 16:43 10/30/23 16:43 10/30/23 16:43 10/30/23 16:43 OB - PN: Obj Data Labs Labs: Laboratory Results - last 24 hr 10/29/23 17:28 WBC 10.38 RBC 3.77 L Hgb 11.1 L Hct 33.7 MCV 89 MCH 29 MCHC 33 RDW Coeff of Autumn 13.3 Plt Count 230 Neut % (Auto) 75.8 H Lymph % (Auto) 15.2 L [place] % (Auto) 7.5 Eos % (Auto) 0.4 Baso % (Auto) 0.3 Neut # (Auto) 7.90 H Lymph # (Auto) 1.60 [place] # (Auto) 0.80 Eos # (Auto) 0.04 Baso # (Auto) 0.03 Abs Immat Gran (auto) 0.08 Imm/Tot Granulo (auto) 0.8 Blood Type A Positive Antibody Screen NEGATIVE OB - PN: A/P Delivery Assessment and Plan (1) Encounter for induction of labor: Status: Acute
[2023-10-30] MEDS: ACETAMINOPHEN 500 MG TABLET 1000 MG PO ×2 (17:32→23:35)
[2023-10-31 01:15] VITALS: BP 116/70; PULSE 79; RESP 18; TEMP 36.8; O2SAT 99
[2023-10-31] MEDS: IBUPROFEN 600 MG TABLET PO ×2 (04:27→10:55)
[2023-10-31 04:30] VITALS: BP 118/68; PULSE 66; RESP 16; TEMP 36.6; O2SAT 98
[2023-10-31] MEDS: ACETAMINOPHEN 500 MG TABLET 1000 MG PO ×3 (06:09→21:37)
[2023-10-31 07:48] LABS: Hemoglobin* 9.4 gm/dL (12.0-16.0)
--- NOTE | 2023-10-31 07:50 | P.OBPN_ITS ---
OB - PN:Subj Subjective Date Seen: 10/31/23 Narrative: Kelsey is a 23 y.o. G 1 P 1 who was admitted to L & D for elective induction of labor. ?She had a NVD that was complicated by complex laceration and vaginal packing, has now been removed. The patient feels well. ?The pain is well cont rolled with current medications. ?She has no new complaints. ?She is breast feeding and reports she is having some difficulty with latch. She plans to see today. the patient has done well.? Vitals have been stable.?She did have a few mildly elevated BP's that were normotensive on repeat. No pre-e labs were drawn and blood pressures have been normotensive since. She has remained afebrile.? Has a good appetite, is tolerating a general diet. ?She is voiding without difficulty.? She is passing gas and has not had a bowel movement.? She is ambulating and denies any dizziness.? Has small amount of rubra lochia. She strongly desired discharge today but was having some concerns. She was encouraged by me, peds, and to stay tonight for additional assistance. At this time, she is agreeable. OB - PN: Obj Exam Physical Exam: Vital signs: Temp Pulse Resp BP Pulse Ox O2 Del Method 97.8 F 66 16 118/68 98 Room Air 10/31/23 04:30 10/31/23 04:30 10/31/23 04:30 10/31/23 04:30 10/31/23 04:30 10/31/23 04:30 Narrative: GENERAL APPEARANCE:? normal affect, alert, no distress MOOD:? appropriate CHEST:? clear to auscultation HEART:? regular rate and rhythm ABDOMEN:? soft, non-tender the uterine fundus is at Umbilicus, Midline and is appropriate for the stage of recovery. PERINEUM:? mild edema of the perineum, there is a vaginal laceration, that is healing well. EXTREMITIES:? normal and no edema OB - PN: A/P Delivery Assessment and Plan (1) care and examination immediately after delivery: Status: Acute (2) Lactating mother: Status: Acute (3) Anemia due to acute blood loss: Status: Acute Plan day: 1 Plan: routine care Comments: Problems: Anemia plan: Routine care , encouraged to see Hgb 9.4. Iron supplement ordered orally every other day Anticipate discharge tomorrow.
[2023-10-31 08:45] VITALS: BP 114/74; PULSE 64; RESP 16; TEMP 36.4; O2SAT 98
[2023-10-31] MEDS: DOCUSATE SODIUM 100 MG CAPSULE PO (10:56)
--- NOTE | 2023-10-31 13:39 | PM.ANPOST ---
Post Anesthesia Note Post Anesthesia Note Patient seen: Inpatient Respiratory Status: adequate Cardiovascular Status: adequate Mental Status: baseline Pain: adequate Temp: baseline Anesthetic awareness: N/A Complications: none Follow care: none
[2023-10-31 16:03] VITALS: BP 115/70; PULSE 94; RESP 16; TEMP 36.8; O2SAT 97
[2023-11-01 00:19] VITALS: BP 128/74; PULSE 86; RESP 16; TEMP 36.9; O2SAT 96
[2023-11-01] MEDS: IBUPROFEN 600 MG TABLET PO ×2 (00:26→08:34)
--- NOTE | 2023-11-01 07:41 | P.DS_ITS ---
DS: Providers Provider Date Seen: 11/01/23 Date of admission: 10/29/23 15:54 Primary care physician: Not a Local Provider Admitting Clinician: Josee Gardner MD Attending Physician on discharge: Colleen Montemayor MD Date of Discharge: 11/01/23 DS: Diagnosis Discharge Diagnosis (1) care and examination immediately after delivery: Status: Acute (2) Lactating mother: Status: Acute (3) Anemia due to acute blood loss: Status: Acute Exam Narrative: Exam Narrative: VSS, afebrile GENERAL APPEARANCE: ?normal affect, alert, no distress MOOD: ?appropriate HEENT: normocephalic, neck supple, full ROM CHEST: ?Symmetrical chest wall movement. ?Normal respiratory effort. ?Clear to auscultation HEART: ?regular rate and rhythm ABDOMEN: ?soft, non-tender. Uterine fundus is firm, at Umbilicus, Midline and is appropriate for the stage of recovery. ?Bowel sounds present. PERINEUM: ?mild edema of the perineum, there is a 1st degree vaginal laceration that is healing well. EXTREMITIES: ?normal and no edema Const: Vital Signs, click to edit/add: Vital Signs - 24 hr 10/31/23 08:45 10/31/23 16:03 11/01/23 00:19 Temperature 97.6 F 98.3 F 98.4 F Pulse Rate [Pulse Oximeter] 64 94 86 Respiratory Rate 16 16 16 Blood Pressure [Le ft Arm] 114/74 115/70 128/74 Pulse Oximetry 98 97 96 Oxygen Delivery Me thod Room Air Room Air Room Air Documenting provider has reviewed patient's vital signs: yes OB - DS: Summary Hospital Course Hospital Course: Kelsey is a 23 y.o. who was admitted to L & D for induction of labor. ?She had an uncomplicated NVD with a tear requiring repair in the OR.?The patient feels well. ?The pain is well controlled with current medications. ?She has no new complaints. ?She is breast feeding and reports things are going well.? the patient has done well.? Vitals have been stable.? She has remained afebrile.? Has a good appetite, is tolerating a general diet. ?She is voiding without difficulty.? She is passing gas and has not yet had a bowel movement.? She is ambulating and denies any dizziness.? Has Small amount of rubra lochia. ?She is planning nothing for prevention. Peripartum Data delivery method: Vaginal Laceration description: Vaginal - 1st Degree complications: none Gender: Female Discharge Plan: Home Status at Discharge Functional status at discharge: independent ambulation Overall status at discharge: patient is progressing back to baseline Time Spent with Patient Time attestation: Total time spent providing and/or coordinating discharge services: Time spent: Less than 30 minutes Discharge Plan Discharge Disposition: Home, Self-Care Date of Admission: 10/29/23 15:54 Attending Provider on Discharge: Heather Love Primary Care Provider: Provider,Not a Local Condition: Stable Anticipated Discharge Date/Time: 11/01/23 12:00 Discharge Medications: New acetaminophen 500 mg Tablet 1,000 mg PO Q6H PRNQty: 0 0RF docusate sodium 100 mg Capsule 100 mg PO DAILY Qty: 90 2RF ibuprofen 600 mg Tablet 600 mg PO Q6H PRNQty: 60 0RF Continued acyclovir 800 mg tablet 800 mg PO BID 5 Days Qty: 20 2RF Hold Instructions: taking as needed Rx Instructions: Take 800 mg twice daily for 5 days with 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 DHA 200 mg capsule 1 mg PO DAILY ferrous sulfate 325 mg (65 mg iron) tablet 325 mg PO Q OTHER DAY 60 Days Qty: 30 0RF Discharge Orders: Discharge Order (Routine); Ordered 11/01/23 Ordered By: Heather Love Patient Education: OB Over the Counter Medication Information, OB Vaginal/Breast Feeding Additional Instructions: Discharge instructions were reviewed with the patient including signs and symptoms of infection and home going medications Nothing vaginally for 6 weeks: no tampons or intercourse Off Work or School for 6 weeks Symptoms to report to doctor: * Bleeding that saturates more than one pad per hour * Passing clots larger than the size of a golf ball * Pain not relieved by prescribed medication * Fever above 100.4 degrees Fahrenheit * A foul vaginal odor * Difficulty in emotions, mood, and functions * Thoughts of hurting yourself and/or * Painful, reddened area in your breast * Any drainage, redness, or tenderness in your IV/epidural site * Severe headache that doesn't improve after taking medications * Changes in vision, including temporary loss of vision, blurred vision, and/or light sensitivity * Upper abdominal pain (usually under ribs on the right side) * Decrease in urination or painful, frequent urinating * Chest pain * Shortness of breath * Tenderness or pain with redness and/swelling in the calf(s) of your leg 2-week visit: discuss infant feeding concerns, review control options and screen for anxiety/depression. 6-week visit for an annual exam. consultation services are available to all mothers and babies for the first year after delivery.? To make an appointment, please call [phone]. Activity Level: Activity as Tolerated Discharge Diet: Regular Follow Up Appointments: Provider,Not a Local [Primary Care Provider] - [facility] [Provider Group] Forms: [employer] Info Instructions
[2023-11-01] MEDS: DOCUSATE SODIUM 100 MG CAPSULE PO (08:35)
[2023-11-01 08:51] VITALS: BP 120/88; PULSE 85; RESP 16; TEMP 36.8; O2SAT 96
[2023-11-01 18:18] LABS: Rapid Plasma Reagin (RPR) Non Reactive (Non Reactive)
== END 2023-11-01 11:23 | disposition home or self-care (01) | DRG 560 ==
PROVIDERS: Admitting Provider Obstetrics & Gynecology; Visit Provider Obstetrics & Gynecology
DX: O99.42 Diseases of the circulatory system complicating childbirth (principal); I34.1 Nonrheumatic mitral (valve) prolapse; O36.63X0 Maternal care for excessive fetal growth, third trimester, not applicable or unspecified; O70.0 First degree perineal laceration during delivery; O99.892 Other specified diseases and conditions complicating childbirth; R73.03 Prediabetes; O99.02 Anemia complicating childbirth; D62 Acute posthemorrhagic anemia; Z3A.39 39 weeks gestation of pregnancy; Z37.0 Single live birth
CPT/HCPCS: 01967; 36415; 59200; 85018; 85025; 86592; 86850; 86900; 86901; A9270; J2270; J2371; J2795; J7120

== ENCOUNTER 2024-05-11 23:27 | Emergency (ER) | payer BC, SELFPAY ==
--- OUTSIDE RECORDS SUMMARY | 2024-05-11 23:30 | XMS_ITS | Continuity of Care Document ---
Author Name [facility] Organization [facility] Care Team Providers Care Military Analyst Name Role Phone [facility] Unavailable Unavailable Medications Combined list of outpatient medications from Department of [facility] and [facility] facilities.Medications provided include 1) outpatient medications from the last 15 months, and 2) patient-reported medications. Medication Details Route Status Patient Instructions Prescription Expires Prescription Number Last Dispense Date Ordering Provider Order Date Order Qty Source ACYCLOVIR (ACYCLOVIR) , 800 MG, TABLET, ORAL, [employer] PHARMA, 100 ea. BOTTLE Active [id number] 4 2023 20 Pharmac y Data Transac tion Service Facilit y METOCLOPRAM GIN HCL (METOCLOPRA MIDE HCL), 10MG, TABLET, ORAL, [employer] [place], 500 ea. BOTTLE Active [id number] 4 2023 30 Pharmac y Data Transac tion Service Facilit y ONDANSETRON HCL (ondansetro n HCl), 4 MG, TABLET, ORAL, Sol[employer] US, 30 ea. BOTTLE Active [id number] 4 2023 30 Pharmac y Data Transac tion Service Facilit y Allergies, Adverse Reactions, Alerts Combined list of allergies from Department of [facility] and [facility] facilities. It does not include entries that were removed or entered in error. Substance Category Reaction Severity Reaction type Status Date Reported Comments Source No Known Allergies Drug allergy (disorder) active 05/16/2020 SERGIO Mann Encounters Combined list of: 1) Encounters from Department of Veterans Affairs facilities going backup to the last 18 months, not all VA inpatient encounters are included; 2) Encounters from the Department of Defense facilities going backup to 280 months. Location Location Details Encounter Type Encounter Number Reason For Visit Attending Provider ADM Date DC Date Status Disposition Source SERGIO Mann([facility] [place] Tm [facility] TELE CONSULT [id number] Notes Entered by: BAHMAN DEJESUS 21 Mar 2020 1122 ------- ------- ------- ------- -- nurse covid deepika denney CLEMENTE GOLDSTEIN 03/21 SERGIO Mann([facility] Tm 5) SERGIO Mann([facility]01[facility] [place] Tm 5) TELE CONSULT [id number] Notes Entered by: KHUSHI SAHA 12 May 2020 1259 ------- ------- ------- ------- -- COVID 19 Nurse Deepika GOODSON NILS Senior 05/12 SERGIO Mann([facility] F01A [facility] Tm 5) SERGIO Mann([facility]) OUTPATIENT [id number] [place] 05/12 Immediate Referral SERGIO Mann([facility]) SERGIO Mann([facility]) OUTPATIENT [id number] [place] 05/12 Released w/o Limitations SERGIO Mann([facility]) SERGIO Mann([facility] M[facility] 1) OUTPATIENT [id number] [facility] FOLLOW UP NEY GARCIA 05/16 Released w/o Limitations SERGIO Mann([facility] M[facility] 1) Procedures Combined list of: 1) Procedures [...] Phone Call To Pt/Provider Intermed (11-20 min) [id number] CLEMENTE GOLDSTEIN DoD Social History Combined list of available smoking, tobacco, and other social history from Department of Defense and Veterans Affairs facilities. Social History Type Response Date Comment Sour e This section is an empty social history section. DoD
[2024-05-11 23:32] VITALS: BP 144/82; PULSE 92; RESP 16; TEMP 36.7; O2SAT 95; BMI 28.1
--- NOTE | 2024-05-11 23:44 | ED.GENADULT ---
HPI - General Adult General Chief complaint: Nausea/Vomiting Stated complaint: Vomiting Time Seen by Provider: 05/11/24 23:35 History of Present Illness HPI narrative: This 23-year-old female is 8 weeks and comes in reporting vomiting with nausea over the past 3 days or so. She has had a previous that had hyperemesis gravidarum. She arrives here with normal vital signs. Related Data Home Medications ?Medication ?Instructions ?Recorded ?Confirmed docosahexaenoic acid 200 mg 1 mg PO DAILY 05/24/23 12/12/23 capsule ( DHA) Previous Rx's ?Medication ?Instructions ?Recorded acyclovir 800 mg tablet 800 mg PO BID 5 days #20 tabs 04/25/23 Allergies Allergy/AdvReac Type Severity Reaction Status Date / Time No Known Drug Allergies Allergy Verified 12/12/23 10:04 Review of Systems Status of ROS: Reports: 10 or more systems reviewed and unremarkable except as noted in History and below Narrative: Constitutional: No fevers, no weight gain or loss. Eyes: No discharge. No vision changes. HENT: No congestion, no sore throat, no ear pain. Cardiovascular: No chest pain, no palpitations. Respiratory: No shortness of breath, no wheezes, no cough. Gastrointestinal: No abdominal pain, no diarrhea. Nausea with vomiting. Genitourinary: No dysuria, no hematuria. Musculoskeletal: Normal range of motion. Skin: No rashes, no pruritis. Neurological: No dizziness, weakness, sensory change, speech change. Endo/Heme/Allergies: No bruising or bleeding. No polydipsia. Pysch: no suicidality, no anxiety, no insomnia. All other systems reviewed and are negative. [facility] Medical History (Updated 05/11/24 @ 23:48 by Mata Almaguer MD) Anemia affecting ?O99.019 - Anemia complicating , unspecified trimester (ICD-10) Family History Mother Breast cancer Melanoma High blood pressure High cholesterol Father High blood pressure High cholesterol Grandfather Colon cancer Grandfather Heart disease Grandmother Heart disease Social History Narrative: Paraprofessional. . Nonsmoker. SOCIAL? ? Education: some college? ? Work: paraprofessional. ? ? Partner: Harjinder, , Diesel tech? ? Lives with: Harjinder? ? Pets: dogs? ? Abuse: Denies past Unable to assess current, partner present? ? Special Diet: Denies? ? Ok with a blood transfusion: yes? ? Culture or pentecostalism beliefs: denies? RISK FACTORS? ? Exercise Times/wk: occasionally? ? Depression/Anxiety: denies? ? Previous Treatments denies Therapy denies BETTE: 0 PHQ 9: 7? ? Seat Belt Use: Routinely ? Smoking: Denies past/present? ? Alcohol/day: Denies while ? ? Caffeine: none? ? Drug Use: Denies past/present? ? What is your current living situation?: I presently have a place to live Problems where you live: no known problems In the past 12 months, utilities in danger of being shut off: no In past 12 months, lack of transportation kept you from medical appts, meetings, work, or getting things needed for daily living: no In the past 12 mos, have been you worried that your food would run out before you had money to buy more?: never true In the past 12 mos, the food you bought just didn't last and you didn't have money to buy more?: never true Smoking Status: Never smoker How often do you have a drink containing alcohol: never How often do you have six or more drinks on one occasion: Never AUDIT-C Alcohol total score: 0 Non-prescribed substance use: denies use How often does anyone, including family, friends and others, physically hurt you: never How often does anyone, including family, friends and others, insult or talk down to you: never How often does anyone, including family, friends and others, threaten you with harm: never How often does anyone, including family, friends and others, scream or curse at you: never Exam Narrative: Exam Narrative: Constitutional: Well-developed, well-nourished, no acute distress. HEENT: Normocephalic, atraumatic. Neck: Normal range of motion. Nontender. Supple. Heart: Regular. No murmurs. Normal rate. Intact distal pulses. Lungs: Clear to auscultation. No chest discomfort. No wheezes, rhonchi, or rales. Abdomen: Normal bowel sounds. Nontender. No rebound tenderness. Genitalia: Deferred. Back: No midline tenderness. Normal range of motion. Extremities: Normal range of motion. No injury. Skin: Intact. No rash. Warm. No erythema or pallor. Neurologic: No altered sensation. No weakness. Alert and oriented. Psychiatric: No suicidality. No anxiety or depression. No insomnia. Nursing notes and vitals signs are reviewed. Const: Vital Signs, click to edit/add: Vital Signs - 24 hr 05/11/24 23:32 Temperature 98.1 F Pulse Rate [Pulse Oximeter] 92 Respiratory Rate 16 Blood Pressure [Ri t Upper Arm] 144/82 H Pulse Oximetry 95 Oxygen Delivery Me thod Room Air Course Vital Signs Vital signs: Initial Vital Signs Temperature 98.1 F 05/11/24 23:32 Temperature Source Temporal Artery Scan 05/11/24 23:32 Pulse Rate 92 05/11/24 23:32 Respiratory Rate 16 05/11/24 23:32 Blood Pressure 144/82 H 05/11/24 23:32 Blood Pressure Mean 102 05/11/24 23:32 Blood Pressure Position Sitting 05/11/24 23:32 Pulse Oximetry 95 05/11/24 23:32 Oxygen Delivery Method Room Air 05/11/24 23:32 Vital Signs Temperature 98.1 F 05/11/24 23:32 Pulse Rate 92 05/11/24 23:32 Respiratory Rate 16 05/11/24 23:32 Blood Pressure 144/82 H 05/11/24 23:32 Pulse Oximetry 95 05/11/24 23:32 Oxygen Delivery Method Room Air 05/11/24 23:32 Temperature 98.1 F 05/11/24 23:32 Pulse Rate 92 05/11/24 23:32 Respiratory Rate 16 05/11/24 23:32 Blood Pressure 144/82 H 05/11/24 23:32 Pulse Oximetry 95 05/11/24 23:32 Oxygen Delivery Method Room Air 05/11/24 23:32 Medical Decision Making MDM Narrative Medical decision making narrative: This patient comes in reporting frequent nausea and vomiting episodes. She is about 8 weeks and arrives with normal vital signs. An IV was established where she received a L of normal saline and 4 mg of Zofran. Care for this patient is transferred to the oncoming overnight physician at the end of my shift. I did provide a [employer] prescription for Zofran tablets. Discharge Plan Discharge Clinical Impression: Hyperemesis gravidarum Patient Disposition: Home, Self-Care Condition: Stable Additional Instructions: Take medication as needed and indicated. Take frequent sips of fluids. Follow up with MD return if worsening. Prescriptions: No Action acyclovir 800 mg tablet 800 mg PO BID 5 Days Qty: 20 2RF Rx Instructions: Take 800 mg twice daily for 5 days with 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 DHA 200 mg capsule 1 mg PO DAILY Follow Up/Referrals: Provider,Not a Local [Primary Care Provider] - Stand Alone Forms: [facility]erd[facility] Info Instructions
[2024-05-11] MEDS: 0.9 % SODIUM CHLORIDE 1000 ml 1,000 ML IV (23:49)
[2024-05-11] MEDS: ONDANSETRON 2 MG/ML inj 4 MG IVP (23:49)
== END 2024-05-12 00:29 | disposition home or self-care (01) ==
PROVIDERS: Emergency Provider Emergency Medicine Emergency Medical Services
DX: O21.0 Mild hyperemesis gravidarum (principal); Z3A.08 8 weeks gestation of pregnancy
CPT/HCPCS: 96374; 99284; J2405; J7030

== ENCOUNTER 2024-05-29 08:15 | Outpatient (CLI) | payer BC, SELFPAY ==
--- NOTE | 2024-05-29 08:15 | CRLHL7_ITS ---
For Patients: As a result of the Cures Act, medical imaging exams and procedure reports are released immediately into your electronic medical record. You may view this report before your referring provider. If you have questions, please contact your health care provider. OB ULTRASOUND INDICATION: Dating and viability. TECHNIQUE: Real time grayscale imaging of the fetus was performed. Transabdominal. LMP: Unknown. CRL: 2.9 cm. 9 w 5 d. LIDIA: 12/27/2024. FHR: 163 BPM. Gestational sac: 4 cm. Appears within normal limits. Yolk sac: 4.2 mm. Appears within normal limits. Right ovary: Within normal limits. 3.5 x 2.6 x 2.6 cm. CL. Left ovary: Within normal limits. 3.5 x 1.9 x 2 cm. IMPRESSION: 1. Single living intrauterine with sonographic gestational age 9 weeks 5 days and sonographic due date 12/27/2024. 2. Incidental corpus luteal cyst right ovary. Naveen Harper M.D. Diagnostic Radiologist [email or web address] VERO/[email or web address] lewis/Dictated by: Naveen Harper MD @ 05/29/2024 9:15:00 AM (Electronically Signed)
== END 2024-05-29 08:16 | disposition home or self-care (01) ==
LOC: US 08:17
PROVIDERS: Visit Provider Registered Nurse
DX: Z34.91 Encounter for supervision of normal pregnancy, unspecified, first trimester (principal); O34.81 Maternal care for other abnormalities of pelvic organs, first trimester; N83.11 Corpus luteum cyst of right ovary; Z3A.09 9 weeks gestation of pregnancy
CPT/HCPCS: 76801

== ENCOUNTER 2024-05-29 09:10 | Outpatient (CLI) | payer BC, SELFPAY ==
[2024-05-29 15:26] LABS: Chlamydia DNA Amplified* NOT DETECTED (No Detected); GC DNA Amplified* NOT DETECTED (No Detected)
== END 2024-05-29 09:11 | disposition home or self-care (01) ==
PROVIDERS: Visit Provider Registered Nurse
DX: Z34.91 Encounter for supervision of normal pregnancy, unspecified, first trimester (principal); Z3A.09 9 weeks gestation of pregnancy
CPT/HCPCS: 82565; 82570; 83020; 83021; 84156; 84450; 84460; 84520; 85660; 86592; 86703; 86704; 86706; 86762; 86787; 86803; 86850; 86900; 86901; 87086; 87340; 87491; 87591

== ENCOUNTER 2024-06-12 07:50 | Outpatient (CLI) | payer BC, SELFPAY | END 2024-06-12 07:51 | disposition home or self-care (01) | LOC: NFLDREF 06-17 06:13 | PROVIDERS: Visit Provider Registered Nurse | DX: O16.1 Unspecified maternal hypertension, first trimester (principal); Z3A.11 11 weeks gestation of pregnancy | CPT/HCPCS: 82570; 84156 ==

== ENCOUNTER 2024-08-11 12:45 | Outpatient (CLI) | payer BC, SELFPAY ==
--- NOTE | 2024-08-11 13:00 | CRLHL7_ITS ---
For Patients: As a result of the Century Cures Act, medical imaging exams and procedure reports are released immediately into your electronic medical record. You may view this report before your referring provider. If you have questions, please contact your health care provider. OB ULTRASOUND ??? GREATER THAN 14 WEEKS, 08/11/2024 CLINICAL HISTORY: Basic anatomy survey. COMPARISON: None. TECHNIQUE: Real time nagy scale imaging of the fetus was performed. Evaluate anatomy. Transabdominal imaging performed. FINDINGS: LIDIA by US: 12/27/2024. GA: 20 weeks 2 days. POSITION: Vertex. PLACENTA/CORD: Placenta Position: Posterior. Technique: TA. Placenta tip to internal OS: 5.8 cm. Umbilical Cord: 3 vessel cord. Placental Insertion: Central. AMNIOTIC FLUID: 4 cm SDP. OBSERVED STRUCTURES: Calvarium/Spine: Cerebellum 2 cm: 20 weeks 5 days Cisterna Magna: 4.8 mm Nuchal Fold: 2.7 mm Lateral Ventricle: 6.3 mm CSP Midline Falx Choroid Plexus Spine ABDOMEN: Stomach Abd Cord Insert Orbital View Profile LIMBS: Upper Extremities Lower Extremities Hands Feet VASCULAR: 4 Ch Heart LVOT BIOMETRY: BPD: 4.5 cm = 19 weeks 5 days. 26% HC: 17.1 cm = 19 weeks 5 days. 18% AC: 14.7 cm = 20 weeks 0 days. 34% FL: 3.4 cm = 20 weeks 3 days. 50% FL/AC: 22.79% HC/AC: 1.16 HEART RATE: 149 bpm age by this US: 20 weeks 1 day LIDIA by this US: 12/28/2024 EFW: 336 grams, 12 oz Percentile by LIDIA: 38% IMPRESSION: 1. Concordance of clinical and sonographic dating. 2. Incomplete visualization of the profile and LVOT. Also, the RVOT, 3vv AND 3VTV are not visualized due to position. Remainder of the anatomic survey is normal. Short-term follow-up recommended regarding these structures. Naveen Harper M.D. Diagnostic Radiologist [email or web address] Transcribed: 9:05 am DW/Dictated by: Naveen Harper MD @ 08/11/2024 10:13:00 PM (Electronically Signed)
== END 2024-08-11 12:46 | disposition home or self-care (01) ==
LOC: US 12:46
PROVIDERS: Visit Provider Obstetrics & Gynecology
DX: Z34.92 Encounter for supervision of normal pregnancy, unspecified, second trimester (principal); O35.9XX0 Maternal care for (suspected) fetal abnormality and damage, unspecified, not applicable or unspecified; Z3A.20 20 weeks gestation of pregnancy
CPT/HCPCS: 76805

== ENCOUNTER 2024-09-08 09:03 | Outpatient (CLI) | payer BC, SELFPAY ==
--- NOTE | 2024-09-08 09:15 | CRLHL7_ITS ---
For Patients: As a result of the Century Cures Act, medical imaging exams and procedure reports are released immediately into your electronic medical record. You may view this report before your referring provider. If you have questions, please contact your health care provider. OBSTETRICAL ULTRASOUND ??? FOLLOW-UP, 09/08/2024 INDICATION: Follow-up anatomy. CLINICAL HISTORY: LIDIA by US: 12/26/2024 Gestational Age: 24 weeks 2 days COMPARISON: Ultrasound 08/11/2024. TECHNIQUE: Real-time nagy-scale transabdominal imaging of the fetus. FINDINGS: Fetus: Single Cervix: Not visualized positioning: Breech Amniotic Fluid: 4.7 cm SDP Placenta technique: Transabdominal Placenta position: Posterior heart rate: 139 bpm IMPRESSION: Normal profile, LVOT, RVOT, three-vessel view, three-vessel trachea view and four-chamber heart. NAVEEN MEEKS M.D. Diagnostic Radiologist [email or web address] Transcribed: 1:[address]/Dictated by: Naveen Meeks MD @ 09/08/2024 12:03:00 PM (Electronically Signed)
--- OUTSIDE RECORDS SUMMARY | 2024-09-09 00:46 | XMS_ITS | Clinical Summary ---
Author Organization [employer] [facility] Address [address] [place] [address] Care Team Providers Care Wire Winding Machine Operator Name Role Phone Lin Boyer Primary Care Provider Danny Monahan MD Unavailable [phone] Nicole Simmons [facility] Unavailable [phone] Allergies No known active allergies Medications vit,chica 74/iron/folic ( VITAMIN 1+1 ORAL) Take by mouth. Active pyridoxine HCl, vitamin B6, (VITAMIN B-6 ORAL) Take by mouth. Active doxylamine succinate (UNISOM, DOXYLAMINE, ORAL) Take by mouth. Active Active Problems Problem Noted Date Diagnosed Date [facility] Supervision of high-risk Overview (04/24/2023): Kelsey Mojgan : 2000 [facility] ULTRASOUND/TESTING PATIENT MPP CONSULT ON Virtual Visit 04/24/23 Support person name: Cpht: No ULTRASOUND TYPE: REASON FOR VISIT: mitral valve prolaspe Cardiology consult for 04/19 with Danny Monahan MD NEXT VISIT ALERTS: Final LIDIA by LMP LMP Date: 01/26/23 LIDIA: 11/02/23 Early US: Date: 03/28/23 GA: 8w 2d LIDIA: 11/05/23 PrePregnancy Weight: 153lbs Height: 5ft 8in BMI: 23.3 PLANS & FUTURE APPOINTMENTS: ULTRASOUND/GROWTH PLAN: - Through: - Growth: Next TESTING PLAN: - Testing: Through DELIVERY PLAN: - Scheduled delivery: - Preferred delivery location: PRIMARY DIAGNOSIS: 22 y.o. Estimated Date of Delivery: 11/02/23. MATERNAL Mitral Valve Prolapse- follows with cardiology, need to get notes A1C 5.9, mildly elevated liver enzymes at annual exam 02/2023 Hx heart murmur resolved @ 1yo - saw cardiology until 1 y/o PREVIOUS ULTRASOUNDS: (PCP) ECHO: REFERRING PHYSICIAN/PHONE/LAST UPDATE: Nicole Simmons [facility] [phone] Primary MD approves scheduling of recommended ultrasounds/testing: Yes SPECIALISTS/CONSULTS: Include: Specialty MD Clinic Name Phone# [facility] and ADDED TO PATIENT CARE TEAM Danny Monahan MD Cardiology appt 04/19/23 obtain notes for consult GENETICS: NIPT: [id number] at primary planning CARE COORDINATION: PERTINENT LABS: labs WNL No type and screen PERTINENT MEDS: PROCEDURES: ECHO 04/08/23 1. Normal left ventricular chamber size and systolic function. Calculated left ventricular ejection fraction is %. No regional wall motion abnormalities. Normal left ventricular wall thickness. 2. Normal right ventricular size and systolic function. 3. Normal diastolic function. 4. Normal sized atria. 5. Elongated anterior mitral valve leaflet with mild anterior leaflet prolapse. Mild posteriorly directed mitral valve regurgitation. There were no prior studies available for comparison. Estimated EF: 55-60% 02/21/23 EKG Normal sinus rhythm (scanned) 03/27/22 ECHO 1. Normal LV size, normal wall thickness, normal global systolic function with an estimated EF of 55 - 60%. 2. Right ventricular cavity size is normal, global systolic RV function is normal. 3. 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 4. Normal estimated pulmonary pressures by tricuspid regurgitation velocity and right atrial pressure (20 mmHg plus RAP). 5. The inferior vena cava is normal sized, respiratory size variation greater than 50%. Comparison There are no prior studies on this patient for comparison purposes. IF FGR <10% or EFW <2000 grams: Add FGRPCOM PLAN OF CARE: Original and updated POC Pap smear for cervical cancer screening 03/05/20 Overview (03/05/2023): 02/2023 NIL Plan: Pap/HPV due 02/2026 Prediabetes 02/22/2023 Elevated LFTs 02/22/2023 Pure hypercholesterolemia 02/22/2023 Dyspareunia in female 02/01/2020 Family history of breast cancer 02/01/2020 Mitral valve prolapse 06/10/2016 Overview (10/03/2017): May 2016: Mild mitral valve prolapse on echocardiogram done for dizziness with exercise, needs repeat echocardiogram in 1 year per Cardiology, so due May 2017. August 2017: Repeat echocardiogram. September 2017: Dr. Yarbrough Consult ( Cardiology) Recommend yearly exam with Cardiology and echocardiogram in 3-5 years. If her symptoms change, consider stress test. 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 Shelby. Started adderall XR 10mg. Increased to 20mg, then 30mg adderall XR May 2015. July 2015: Lida and Colleen signed controlled substance agreement with Dr. Jimenez for 30 day monthly supply of Adderall for ADD. May 2016: due to insurance, changed to concerta. October 2016: due to insurance changed concerta to Metadate CD 30mg. Signed Controlled Substance Agreement with [employer], ADHD Stimulant med, 30 per month, with Dr. Jimenez. MEtadate CD: caused stomach side effects and decreased appetite. Nov 2016: changed back to concerta 36mg. Chiari malformation 05/18/2014 Overview (05/28/2014): Type 1, Diagnosis 2015 by neurology. Concussion 06/05/2013 Overview (05/18/2015): May 2013: Concussion. Nov and Dec 2013-concussions with prolonged symptoms and academic difficulty. Apr 2014: Saw [facility], DR. Alberts, cleared to return to sports. August 2014: Follow up ImPACT 08/18/14 should be new baseline. 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 Heart murmur Resolved Problems Problem Noted Date Diagnosed Date Resolved Date Peripheral pulmonic stenosis 02/21/2023 Immunizations Immunization Administration Dates Next Due DTaP 08/05/2003, 0,02/20/1999,12/22,1998 Hepatitis A (Peds) 10/11/2006,10/02/2005 Hepatitis B (Peds) 07/07/1999,1998, 999 Hib Conjugate, Unspecified 11/30/1999,,1998,10/20 Human Papilloma Virus Vaccine 05/18/2013, 013,10/16/2012 Inactivated Polio Vaccine 08/05/2003,,1998,10/20 Influenza, IIV4 02/01/2020,11/30/2018,11/24/2015 Influenza,LAIV4 Live Intrana johan (Flumist) 12/27/2014,12/10/2013,12/29/2012 MMR 08/05/2003,11/30/1999 Meningococcal Vaccine (Menomune) 12/27/2014,070 11/2009 Pneumococcal conj 7-Valent (Prevnar 7) 1,11/30/1999 Tdap 02/01/2020,09/16/2009 Varicella Vaccine 10/11/2006,11/30/1999 Family History Medical History Relation Name Comments Hyperlipidemia Father Cleve Hypertension Father Cleve Heart Disease Maternal Aunt 1 Other Maternal Aunt 1 HI age 48, A neurysm brain stem Thyroid Disease Maternal Aunt 1 Thyroid Disease Maternal Aunt 2 Heart Disease Maternal Grandfather Hyperlipidemia Maternal Grandfather Other Maternal Grandfather Bypass surgery after second HI Thyroid Disease Maternal Grandfather Heart Disease Maternal Grandmother 76 had HI Hypertension Maternal Grandmother Heart Disease Maternal Uncle Other Maternal Uncle afte r HI Cancer-breast Mother nAi Negative ramila ic testing Hyperlipidemia Mother Ani Hypertension Mother Ani Melanoma Mother Ani Other Paternal Grandmother Relation Name Status Comments Brother Timothy BOWIE 06-19-95 Father Cleve Maternal Aunt 1 Maternal Aunt 2 Maternal Grandfather Maternal Grandmother Maternal Uncle Mother Ani Paternal Grandmother Social History Tobacco Use Types Packs/Day Years Used Date Smoking Tobacco: Never Smokeless Tobacco: Never Tobacco Cessation:Counseling Given: Yes Alcohol Use Standard Drinks/Week Comments Not Currently 0 (1 standard drink = 0.6 oz pur e alcohol) rare PHQ-2 Answer Date Recorded PHQ-2 TOTAL SCORE 0 02/21/2023 Social Connections Answer Date Recorded Frequency of Communication with Friends and Fami ly Not on file 03/02/2021 Financial Resource Strain Answer Date R ecorded Difficulty of Paying Living Expenses Not on file 03/02/2021 Difficulty of Paying Living Expenses Not on file 03/02/2021 Interpersonal Safety Answer Date Record ed Are you being hit, kicked, p ushed or yelled at (see row info)? Unable to assess due to chronic condition 04/24/2023 Interpersonal Safety Abuse 12 - 18 Not on file 04/24/2023 Interpersonal Safety Ambulat ory Vulnerability Not on file 04/24/2023 Comments Unknown Sex and Gender Information Value Date Recorded Sex Assigned at Not on file Legal Sex Female 7:26 AM BLUEPRINT TRACER Gender Identity Not on file Sexual Orientation Not on file Obstetrics History Para Term AB IAB SAB Ectopic Multiple Livin g Live Births 1 Date Outcome GA Total Labor Labor/2nd/3rd Weight Sex Type Anes PTL Maite A1 A5 Name Clin Last Filed Vital Signs Vital Sign Reading Time Taken Comments Blood Pressure 126/72 04/19/2023 3:04 PM BLUEPRINT TRACER Pulse 92 04/19/2023 3:04 PM BLUEPRINT TRACER Temperature 37.3 C (99.1 F) 02/12/2022 2:18 PM BLUEPRINT TRACER Respiratory Rate 14 04/19/2023 3:04 PM BLUEPRINT TRACER Oxygen Saturation 100% 04/19/2023 3:04 PM BLUEPRINT TRACER Inhaled Oxygen Concentration - - Weight 67 kg (147 lb 12.8 oz) 04/19/2023 3:04 PM BLUEPRINT TRACER Height 174 cm (5' 8.5) 04/19/2023 3:04 PM BLUEPRINT TRACER Body Mass Index 22.15 04/19/2023 3:04 PM BLUEPRINT TRACER Plan of Treatment Upcoming Encounters Date Type Department Care Team (Late st Contact Info) Description 09/18/2024 8:30 AM CDT Office Visit [facility] [address] [place] [address] [place] [address] [place] [address] Health Maintenance Due Date Last Done Comments Depression screening for age 12+ 2010 HIV for age 15-65 2013 Hepatitis C screening for ag e 18-79 2016 Pneumococcal series for age 6-49 (1 of 2 - PCV) 2017 09/16/2000, 11/30/1999 COVID-19 vaccine series ( - season) 2023 BMI (ht and wt on same day) for age 18+ 04/19/2024 04/19/2023, 02/21/2023, 02/09/2022, Additional history exists Influenza Vaccine (Season Ended) 2024 02/01/2020, 11/30/2018, 11/24/2015, Additional history exists Pap test for age 21-65 02/21/2026 02/21/2023, 2019 Tetanus booster 01/31/2030 02/01/2020, 09/16/2009 Hepatitis B series for 19+ Completed 07/06, 1998, 1998 HPV series for age 9-26 Completed 05/19/19 14, 12/29/2012, 10/16/2012 (IA) Tdap Completed 02/01/2020, 09/16/2009 Procedures Procedure Name Priority Date/Time Associated Diagnosis Comments SUPPLY CHAIN TECHNICIAN THIN PREP PAP SCREEN IMAGED Routine 02/21/2023 4:31 PM BLUEPRINT TRACER Screening for cervical cancer from Last 3 Months or Most Recently Relevant to Health Maintenance Results * SUPPLY CHAIN TECHNICIAN THIN PREP PAP SCREEN IMAGED [[id number]] (02/21/2023 4:31 PM BLUEPRINT TRACER) Case Report Gynecologic Cytology Report Case: [id number] Authorizing Provider: Lin Boyer DO Collected: 02/21/2023 1631 Ordering Location: [facility] Received: 02/21/2023 1631 Clinic First Screen: Baccam, Minie Rescreen: Yovana Florentino Specimen: SUPPLY CHAIN TECHNICIAN ThinPrep Vial Screening, Cervical 03/05/2023 12:34 PM [facility] INTERPRETATION/ RESULT NEGATIVE FOR INTRAEPITHELIAL LESION OR MALIGNANCY (NIL) (none) 03/05/2023 12:34 PM BLUEPRINT TRACER [facility] at 1234 BLUEPRINT TRACER SPECIMEN ADEQUACY Satisfactory for evaluation Endocervical component present 03/05/2023 12:34 PM [facility]PRINT TRAC[facility] Date of LMP 01/26/23 03/05/2023 12:34 PM BLUEPRINT TRACER [facility] Last Pap Date 02/01/20 03/05/2023 12:34 PM BLUEPRINT TRACER [facility] Last Pap Result NIL 12:34 PM BLUEPRINT TRACER [facility] Abnormal Pap or Pool Bx in last 5 years No 03/05/2023 12:34 PM BLUEPRINT TRACER [facility] EN[facility] Menstrual Status Regular Periods 03/05/2023 12:34 PM BLUEPRINT TRACER [facility] Pool Bx Done Today No 03/05/2023 12:34 PM BLUEPRINT TRACER [facility] Additional Information None given 03/05/2023 12:34 PM BLUEPRINT TRACER [facility] Comment: Cytology is screened at [employer] [facility], Central Laboratory - [address], [place] [address] and [facility] - [address] [place] [address] and [facility] - [address] [place] [address] Interpreted at [employer] [facility], Central Laboratory - [address], [place] [address] Automated Review Successful 03/05/2023 12:34 PM BLUEPRINT TRACER [facility] Comment:Specimen processed s uccessfully by automated superintendent system operation device, ThinPrep Imaging System, [employer] Note The pap test is a screening technique, not a diagnostic procedure. It is used primarily to screen for squamous cancers and precursor lesions. Published studies have shown that it is subject to both false negative and false positive results. The pap test should not be used as the sole means to diagnose or exclude pre-malignant and malignant lesions. 03/05/2023 12:34 PM BLUEPRINT TRACER [facility]- ENTRAL LABORATORY Other (Cervical) Non-Blood / Unknown 02/21/2023 4:31 PM BLUEPRINT TRACER 02/21/2023 4:31 PM BLUEPRINT TRACER us Lin Boyer DO PATHOLOGY/CYTOLOGY Final Re sult [facility] [address] [place] [address], [place] from Last 3 Months or Most Recently Relevant to Health Maintenance Insurance [facility] [employer] Care Teams Wire Winding Machine Operator Relationship Specialty [place] [address] [place], [place] [id number] PCP - General Family Practice 11/28/21 [place] [address] [place], [place] [id number] Consulting Physician Cardiovascular Disease 03/28/23 Nicole Simmons, DONNA [address] [place], [place] [phone] Certified Nurse Coil Machine Operator 04/24/23
== END 2024-09-08 09:04 | disposition home or self-care (01) ==
LOC: US 09:04
PROVIDERS: Visit Provider Obstetrics & Gynecology
DX: Z36.2 Encounter for other antenatal screening follow-up (principal); Z3A.24 24 weeks gestation of pregnancy
CPT/HCPCS: 76816

== ENCOUNTER 2024-10-06 10:16 | Outpatient (CLI) | payer BC, SELFPAY | END 2024-10-06 10:17 | disposition home or self-care (01) | LOC: NFLDREF 10-08 14:34 | PROVIDERS: Visit Provider Obstetrics & Gynecology | DX: Z34.93 Encounter for supervision of normal pregnancy, unspecified, third trimester (principal); Z3A.28 28 weeks gestation of pregnancy | CPT/HCPCS: 86592 ==

== ENCOUNTER 2024-10-25 20:13 | Outpatient (CLI) | payer BC, SELFPAY ==
[2024-10-25 20:51] VITALS: BP 122/62; PULSE 88; RESP 18; TEMP 36.7; O2SAT 97
[2024-10-25 21:01] LABS: Appearance Urine Clear (Clear)
[2024-10-25 21:03] LABS: Amnisure Rom* Negative
[2024-10-25 22:15] LABS: Bacterial Vaginosis* Negative (Negative); Candida glab/krus NOT DETECTED (No Detected)
--- NOTE | 2024-10-25 22:39 | PC.OBNST ---
NST Note NST Note Start: 10/25/24 20:18 Freq: ONCE Status: Active Protocol: Document 10/25/24 22:38 YUSUF (Rec: 10/25/24 22:38 YUSUF [id number]) NST Note 2 Para (# of births) 1 EDC 12/27/24 Gestational Age In 31 Weeks & 0 Days Weeks & Days Patient Presented Leaking fluid with Complaint(s) of Reactive Yes RN Fili Liz, RN Date 10/25/24 Reactive Yes MC Mulligan RN Date 10/25/24 OB NST charge Yes Complete NST Note Yes via Write Note The provider's electronic signature indicates the NST is reactive/appropriate for gestational age. *Note to provider: If an addendum is required, open the patient's chart and click on the note under the Nurse/Allied Health tab.
== END 2024-10-25 22:35 | disposition home or self-care (01) ==
LOC: OB OUT 20:14 → OB 20:18
PROVIDERS: Absent Provider Obstetrics & Gynecology; Visit Provider Obstetrics & Gynecology
DX: O47.03 False labor before 37 completed weeks of gestation, third trimester (principal); Z3A.31 31 weeks gestation of pregnancy
CPT/HCPCS: 59025; 81001; 81003; 81513; 84112; 87086; 87481; 87661; G0463

== ENCOUNTER 2024-11-16 11:02 | Outpatient (CLI) | payer BC, SELFPAY | END 2024-11-16 11:03 | disposition home or self-care (01) | LOC: NFLDREF 11-19 17:08 | PROVIDERS: Visit Provider Obstetrics & Gynecology | DX: Z34.90 Encounter for supervision of normal pregnancy, unspecified, unspecified trimester (principal) | CPT/HCPCS: 82728 ==

== ENCOUNTER 2024-11-19 10:07 | Outpatient (CLI) | payer BC, SELFPAY ==
[2024-11-19 10:15] VITALS: BP 125/58; PULSE 90; RESP 18; TEMP 36.8
[2024-11-19 10:16] VITALS: PULSE 101; O2SAT 96
--- NOTE | 2024-11-19 10:45 | CRLHL7_ITS ---
For Patients: As a result of the Century Cures Act, medical imaging exams and procedure reports are released immediately into your electronic medical record. You may view this report before your referring provider. If you have questions, please contact your health care provider. OB ULTRASOUND FOLLOW-UP/LIMITED, 11/19/2024 CLINICAL HISTORY: Assess cervix, rule out labor. COMPARISON: 09/08/2024, 08/11/2024, 05/29/2024. TECHNIQUE: Real time nagy scale imaging of the fetus was performed. Transabdominal and transvaginal imaging performed. Transvaginal ultrasound of the pelvis was performed to better evaluate the genitourinary organs such as the ovaries and/or endometrium. FINDINGS: LMP: Unknown. LIDIA by US: 12/27/2024. GA: 34 weeks 4 days. Cervix: Visualized. Transvaginal. Positioning: Vertex. Amniotic Fluid: 6.4 cm SDP. Placenta: Technique: TA. Placenta Position: Posterior. Dopplers: Heart Rate: 133 bpm. IMPRESSION: Transvaginal measurement of the cervix performed. The cervix is closed and measures 3.3 cm. No funneling or endocervical fluid. Naveen Harper M.D. Diagnostic Radiologist [email or web address] Transcribed: 12:28 pm DW/Dictated by: Naveen Harper MD @ 11/19/2024 12:08:00 PM (Electronically Signed)
[2024-11-19 11:07] LABS: Appearance Urine Clear (Clear)
[2024-11-19 11:31] LABS: Trichomonas No Trichomonas Seen (None Seen)
[2024-11-19 11:42] LABS: Fetal Fibronectin* Negative (Negative)
--- NOTE | 2024-11-19 13:36 | PC.OBNST ---
NST Note NST Note Start: 11/19/24 10:17 Freq: ONCE Status: Active Protocol: Document 11/19/24 10:17 MMS (Rec: 11/19/24 13:36 MMS No Response) NST Note 2 Para (# of births) 1 EDC 12/27/24 Gestational Age In 34 Weeks & 4 Days Weeks & Days Patient Presented Contractions/cramping with Complaint(s) of Reactive Yes Appropriate for Yes Gestational Age MC Devlin, RN Date 11/19/24 Reactive Yes Appropriate for Yes Gestational Age MC Balbuena RN Date 11/19/24 OB NST charge Yes Complete NST Note Yes via Write Note The provider's electronic signature indicates the NST is reactive/appropriate for gestational age. *Note to provider: If an addendum is required, open the patient's chart and click on the note under the Nurse/Allied Health tab.
[2024-11-20 10:57] LABS: Strep B DNA Probe Negative (Negative)
[2024-11-20 11:09] LABS: Strep B Susceptibility Needed? No
== END 2024-11-19 12:43 | disposition home or self-care (01) ==
LOC: OB OUT 10:07 → OB 10:09
PROVIDERS: Visit Provider Obstetrics & Gynecology
DX: O47.03 False labor before 37 completed weeks of gestation, third trimester (principal); Z3A.34 34 weeks gestation of pregnancy
CPT/HCPCS: 59025; 76815; 76817; 81003; 84112; 87081; 87086; 87210; 87653; G0463

== ENCOUNTER 2024-12-18 22:26 | Outpatient (CLI) | payer BC, SELFPAY ==
[2024-12-18 22:46] VITALS: BP 125/69; PULSE 91
[2024-12-18 23:20] LABS: Amnisure Rom* Negative
--- NOTE | 2024-12-19 00:05 | PC.OBNST ---
NST Note NST Note Start: 12/18/24 22:34 Freq: ONCE Status: Active Protocol: Document 12/19/24 00:03 JOSH (Rec: 12/19/24 00:05 ) NST Note 2 Para (# of births) 1 EDC 12/27/24 Gestational Age In 38 Weeks & 6 Days Weeks & Days Patient Presented Leaking fluid with Complaint(s) of Reactive Yes Appropriate for Yes Gestational Age MC lay rn Date 12/19/24 Reactive Yes Appropriate for Yes Gestational Age MC Posey RN Date 12/19/24 OB NST charge Yes Complete NST Note Yes via Write Note The provider's electronic signature indicates the NST is reactive/appropriate for gestational age. *Note to provider: If an addendum is required, open the patient's chart and click on the note under the Nurse/Allied Health tab.
== END 2024-12-18 23:58 | disposition home or self-care (01) ==
LOC: OB OUT 22:26 → OB 22:27
PROVIDERS: Visit Provider Obstetrics & Gynecology
DX: O47.1 False labor at or after 37 completed weeks of gestation (principal); Z3A.38 38 weeks gestation of pregnancy
CPT/HCPCS: 59025; 84112; G0463

== ENCOUNTER 2024-12-24 09:40 | Outpatient (CLI) | payer BC, SELFPAY ==
[2024-12-25 11:11] LABS: Strep B DNA Probe Negative (Negative)
[2024-12-25 11:43] LABS: Strep B Susceptibility Needed? No
== END 2024-12-24 09:41 | disposition home or self-care (01) ==
LOC: NFLDREF 09:40
PROVIDERS: Visit Provider Obstetrics & Gynecology
DX: Z34.93 Encounter for supervision of normal pregnancy, unspecified, third trimester (principal)
CPT/HCPCS: 87081; 87653

== ENCOUNTER 2024-12-26 00:47 | Inpatient (IN) | payer BC, SELFPAY ==
[2024-12-26] VITALS (57 sets, daily range): BP systolic 84–149; BP diastolic 45–79; PULSE 73–109; RESP 16–20; TEMP 36.4–36.8; O2SAT 96–98; BMI 31.9
[2024-12-26 01:23] LABS: Hematocrit* 33.9 % (33.0-51.0); Hemoglobin* 11.2 gm/dL (12.0-16.0); Immature Granulocytes Abs Auto 0.04 K/uL (0.00-0.30); Immature Granulocytes Pct Auto 0.4 %; Mean Corpuscular HGB Conc 33 gm/dL (32-36); Mean Corpuscular Hemoglobin 29 pg (26-34); Mean Corpuscular Volume 88 fL (80-100); RDW Coefficient of Variation % 13.9 % (11.5-15.5); Red Blood Count* 3.84 m/uL (4.00-5.20); White Blood Count* 9.83 K/uL (4.50-11.00)
[2024-12-26 01:44] LABS: Lymphocytes Absolute Auto 1.90 K/uL (0.90-2.90); Slide Review Reflex No
[2024-12-26] MEDS: LACTATED RINGERS 1000 ML 1,000 ML 1125 ML IV ×2 (02:15→08:32)
[2024-12-26] MEDS: ROPIVACAINE 0.2% 100 ml 100 ML 12 MG EPIDURAL (02:51)
[2024-12-26] MEDS: LIDOCAINE 2% (PF) 5 ML VIAL EPIDURAL (02:52)
--- NOTE | 2024-12-26 03:05 | PM.ANBPRC ---
PFSH PFS Medical History Anemia due to acute blood loss ?D62 - Acute posthemorrhagic anemia (ICD-10) Nausea and vomiting during ?O21.9 - Vomiting of , unspecified (ICD-10) Anemia affecting ?O99.019 - Anemia complicating , unspecified trimester (ICD-10) Family History Mother Breast cancer Melanoma High blood pressure High cholesterol Father High blood pressure High cholesterol Grandfather Colon cancer Grandfather Heart disease Grandmother Heart disease Social History Narrative: . Nonsmoker. SOCIAL? ? Education: some college? ? Work: stay at home mom ? ? Partner: Harjinder, , Diesel tech? ? Lives with: Harjinder? ? Pets: dogs and chickens? ? Abuse: Denies past Unable to assess current, partner present? ? Special Diet: Denies? ? Ok with a blood transfusion: yes? ? Culture or buddhist beliefs: denies? RISK FACTORS? ? Depression/Anxiety: denies? ? Previous Treatments denies Therapy denies BETTE:4 PHQ 9:1? ? Smoking: Denies past/present? ? Alcohol/day: Denies while ? ? ? Drug Use: Denies past/present? ? What is your current living situation?: I presently have a place to live Problems where you live: no known problems In the past 12 months, utilities in danger of being shut off: no In past 12 months, lack of transportation kept you from medical appts, meetings, work, or getting things needed for daily living: no In the past 12 mos, have been you worried that your food would run out before you had money to buy more?: never true In the past 12 mos, the food you bought just didn't last and you didn't have money to buy more?: never true Smoking Status: Never smoker How often do you have a drink containing alcohol: never How often do you have six or more drinks on one occasion: Never AUDIT-C Alcohol total score: 0 Non-prescribed substance use: denies use How often does anyone, including family, friends and others, physically hurt you: never How often does anyone, including family, friends and others, insult or talk down to you: never How often does anyone, including family, friends and others, threaten you with harm: never How often does anyone, including family, friends and others, scream or curse at you: never Meds Home Medications and Allergies Home Medications ?Medication ?Instructions ?Recorded ?Confirmed ?Type docosahexaenoic acid 200 mg 1 mg PO DAILY 05/24/23 12/26/24 History capsule ( DHA) acyclovir 800 mg tablet 800 mg PO BID PRN 05/29/24 12/26/24 History docusate sodium 100 mg capsule 100 mg PO QDAY 05/29/24 12/26/24 History (Colace) ferrous sulfate 325 mg (65 mg 325 mg PO QDAY 10/20/24 12/26/24 History iron) tablet (FeroSul) Allergies Allergy/AdvReac Type Severity Reaction Status Date / Time No Known Drug Allergies Allergy Verified 12/24/24 09:33 Results Labs Labs: Laboratory Results - last 24 hr 12/26/24 01:16 WBC 9.83 RBC 3.84 L Hgb 11.2 L Hct 33.9 MCV 88 MCH 29 MCHC 33 RDW Coeff of Autumn 13.9 Plt Count 227 Neut % (Auto) 70.8 Lymph % (Auto) 19.5 L Greeley % (Auto) 8.1 Eos % (Auto) 0.8 Baso % (Auto) 0.4 Neut # (Auto) 6.95 Lymph # (Auto) 1.90 Greeley # (Auto) 0.80 Eos # (Auto) 0.08 Baso # (Auto) 0.04 Abs Immat Gran (auto) 0.04 Imm/Tot Granulo (auto) 0.4 Vital Signs Vital Signs: Last Vital Signs Temp 98.3 F 12/26/24 01:40 Pulse 88 12/26/24 03:02 BP 105/51 L 12/26/24 03:02 Pulse Ox 98 12/26/24 02:55 Weight: 95.254 kg Height: 172.72 cm Anesthesia Procedures Epidural Insertion Patient Location: OB Start Time: 02:30 Stop Time: 03:30 Start Date: 12/26/24 Stop Date: 12/26/24 Reason for Block: primary anesthetic Patient Position: sitting Performed By: Etienne Hawkins Preanesthetic Checklist: IV checked, risks and benefits discussed, monitors and equipment checked, pre-op evaluation, timeout performed and anesthesia consent Prep: chlorhexidine gluconate Monitoring: blood pressure monitoring, continuous pulse oximetry and heart rate Approach: midline Vertebral Space: lumbar (1-5) Epidural Technique: WAYNE saline Needle Type: Tuohy needle Injection Technique: continuous catheter Needle gauge: 17 Needle Length (cm): 10 cm Needle Insertion Depth (cm): 6 Catheter Gauge: 19 Catheter Type: multi-orifice Catheter at skin depth (cm): 12 Test Dose Result: negative and lidocaine 1.5% with epinephrine 1 to 200,000
[2024-12-26] MEDS: LACTATED RINGERS 1000 ML 1,000 ML 125 ML IV (03:07)
--- NOTE | 2024-12-26 06:04 | P.LDBA_ITS ---
Subjective History of Present Illness Narrative: Patient is being admitted to Labor and Delivery for spontaneous onset of labor. She is a 24 year old at 39w6d gestation. Her full history and physical was dictated by myself on 12/11/24. Please see this for details. Patient's notes onset of regular/painful contractions. She was 6.5cm on admission. No vaginal bleeding or leaking of fluids. Endorsed active movement. Patient was admitted for labor, where epidural was placed for pain control. Repeat exam after epidural at 0400 was 8cm dilated by RN report. She was offered augmentation with amniotomy, elected for expectant management given her spontaneous labor progress and desire for rest. Specific Issues/Plans G 2 P 1001 : Harjinder H&P: Sim on 12/11 #Closely-spaced pregnancies #Mitral valve prolapse Cardiology: referral placed [facility] note from previous 04/2023: no additional risk in ; okay to deliver at center of her choice; anesthesia per patient preference; no IV fluid restriction; labor okay, obtain echo at 30 weeks. [x] cardiology 09/18 - no further eval unless sx. Repeat echo in 2 years. #Suboptimal views on FAS - Repeat at 24 weeks, normal. See below. #Prediabetic prior to first A1C: Normal at 5.3% , normal 1 hour glucola #HepB non immune - low risk, declined vaccination # pre E labs: Total protein 24 hours: 22.5; P/C ratio 0.02 Imaging: - FAS 08/11: Visualized anatomy is within normal limits, however suboptimal view of profile, LVOT, RVOT, 3VV and 3VTV. EFW 336g at 38%ile - BPD 26%ile, HC 18%ile, AC 34%ile, FL 50%ile. Posterior placenta, no previa/LL. Central insertion, three-vessel cord. MVP 4 cm. Cervix 3.8cm. - 09/08: Repeat US to complete missed views on FAS, normal. Breech. FHR 139bpm. Breech. Flu: Recommended. Declines. Covid: Not vaccinated. Recommended. Declines. Tdap: 10/20/24 RSV: declined GBS negative 32 week mental health: 11/03/24 Last pap: NIL OB - Problem Based A/P Additional Plan (1) care: Status: Acute (2) Short interval between pregnancies affecting in first trimester, antepartum: Status: Acute (3) Prediabetes: Problem details: 03/02 HgbA1C 5.9 Status: Acute (4) Mitral valve prolapse: Status: Acute Plan Kelsey is a 24yo at 39w6d GA admitted for spontaneous onset of labor. is complicated by history of mitral valve prolapse (asymptomatic, status post cardiology workup), history of pre diabetes (normal A1c in this , no GDM) and close interval . Patient made spontaneous change on admission, from 6.5 to 8cm dilated and is now comfortable s/p epidural. Offered amniotomy at 0400, patient opted for expectant management to allow for a period of rest. Repeat exam is unchanged, AROM performed with return of clear fluid. - Anticipate exam in 2 hours, sooner as clinically indicated - Category 1 heart rate - Continue contraction monitoring via toco - Blood type A positive - GBS negative - Care to be assumed by Dr. Gutierrez at 0700 OB Exam Physical Exam Vital signs: Temp Pulse BP Pulse Ox 97.9 F 96 98/49 L 98 12/26/24 03:15 12/26/24 05:59 12/26/24 05:59 12/26/24 02:55 Narrative: General: Alert and oriented, no acute distress Psych: Appropriate mood and affect Abdomen: Gravid. Cervix: 8/90/-1, AROM performed with return of clear fluid FHR: Category 1. Baseline 150bpm, moderate variability, accelerations present, no decelerations [place]: Unclear if reliably tracking contractions, aprpoximately q4-8minutes in last hour
--- NOTE | 2024-12-26 08:08 | PM.ANBPRC ---
PFSH PFS Medical History Anemia due to acute blood loss ?D62 - Acute posthemorrhagic anemia (ICD-10) Nausea and vomiting during ?O21.9 - Vomiting of , unspecified (ICD-10) Anemia affecting ?O99.019 - Anemia complicating , unspecified trimester (ICD-10) Family History Mother Breast cancer Melanoma High blood pressure High cholesterol Father High blood pressure High cholesterol Grandfather Colon cancer Grandfather Heart disease Grandmother Heart disease Social History Narrative: . Nonsmoker. SOCIAL? ? Education: some college? ? Work: stay at home mom ? ? Partner: Harjinder, , Diesel tech? ? Lives with: Harjinder? ? Pets: dogs and chickens? ? Abuse: Denies past Unable to assess current, partner present? ? Special Diet: Denies? ? Ok with a blood transfusion: yes? ? Culture or denominational beliefs: denies? RISK FACTORS? ? Depression/Anxiety: denies? ? Previous Treatments denies Therapy denies BETTE:4 PHQ 9:1? ? Smoking: Denies past/present? ? Alcohol/day: Denies while ? ? ? Drug Use: Denies past/present? ? What is your current living situation?: I presently have a place to live Problems where you live: no known problems In the past 12 months, utilities in danger of being shut off: no In past 12 months, lack of transportation kept you from medical appts, meetings, work, or getting things needed for daily living: no In the past 12 mos, have been you worried that your food would run out before you had money to buy more?: never true In the past 12 mos, the food you bought just didn't last and you didn't have money to buy more?: never true Smoking Status: Never smoker How often do you have a drink containing alcohol: never How often do you have six or more drinks on one occasion: Never AUDIT-C Alcohol total score: 0 Non-prescribed substance use: denies use How often does anyone, including family, friends and others, physically hurt you: never How often does anyone, including family, friends and others, insult or talk down to you: never How often does anyone, including family, friends and others, threaten you with harm: never How often does anyone, including family, friends and others, scream or curse at you: never Meds Home Medications and Allergies Home Medications ?Medication ?Instructions ?Recorded ?Confirmed ?Type docosahexaenoic acid 200 mg 1 mg PO DAILY 05/24/23 12/26/24 History capsule ( DHA) acyclovir 800 mg tablet 800 mg PO BID PRN 05/29/24 12/26/24 History docusate sodium 100 mg capsule 100 mg PO QDAY 05/29/24 12/26/24 History (Colace) ferrous sulfate 325 mg (65 mg 325 mg PO QDAY 10/20/24 12/26/24 History iron) tablet (FeroSul) Allergies Allergy/AdvReac Type Severity Reaction Status Date / Time No Known Drug Allergies Allergy Verified 12/24/24 09:33 Results Labs Labs: Laboratory Results - last 24 hr 12/26/24 01:16 WBC 9.83 RBC 3.84 L Hgb 11.2 L Hct 33.9 MCV 88 MCH 29 MCHC 33 RDW Coeff of Autumn 13.9 Plt Count 227 Neut % (Auto) 70.8 Lymph % (Auto) 19.5 L [place] % (Auto) 8.1 Eos % (Auto) 0.8 Baso % (Auto) 0.4 Neut # (Auto) 6.95 Lymph # (Auto) 1.90 [place] # (Auto) 0.80 Eos # (Auto) 0.08 Baso # (Auto) 0.04 Abs Immat Gran (auto) 0.04 Imm/Tot Granulo (auto) 0.4 Vital Signs Vital Signs: Last Vital Signs Temp 98.3 F 12/26/24 06:55 Pulse 86 12/26/24 08:01 BP 95/53 L 12/26/24 08:01 Pulse Ox 98 12/26/24 02:55 Weight: 95.254 kg Height: 172.72 cm Anesthesia Procedures Intrathecal Patient Location: OB Start Time: 07:40 Stop Time: 08:00 Start Date: 12/26/24 Stop Date: 12/26/24 Reason for Block: primary anesthetic Patient Position: sitting Performed By: Etienne Hawkins Preanesthetic Checklist: IV checked, risks and benefits discussed, monitors and equipment checked and anesthesia consent Prep: chlorhexidine gluconate Monitoring: blood pressure monitoring, continuous pulse oximetry and heart rate Approach: midline Vertebral Space: lumbar (1-5) Needle Type: Sprotte Injection Technique: single-shot Needle gauge: 24 Needle Length (cm): 10 cm Events: cerebrospinal fluid (ITN is 20 mcg fentanyl and 0.6 ml 0.75% marcaine)
[2024-12-26] MEDS: OXYTOCIN 30 unit/500 ML in NS 30 UNIT/500 ML BAG 300 UNIT IVPB (08:46)
--- NOTE | 2024-12-26 09:05 | W.PM.OBVAGDE ---
OB Procedure Vag Delivery Mother Details Mother Details: The patient is a 24 year-old, 2, Para 1, admitted on 12/26/24 at 39 6/7 Days gestation. Patient was admitted in labor for delivery. : 2 Para: 2 Weeks Gestation: 39.6 Admission Date: 12/26/24 Additional Details Amniotic Membrane Status: AROM Amniotic Membrane Rupture Date: 12/26/24 Amniotic Membrane Rupture Time: 06:22 Amniotic Membrane Fluid Description: Clear Analgesia/Anesthesia Type: Epidural and Intrathecal Waterbirth: No [place]: No Intrapartal Events: Labor Augmentation Delivery augmentation: rupture of membranes Labor Onset: 00:37 Complete: 08:35 Pushin:41 Heart: heart tones during second stage were category 2. While heart rate did drop to the 70-80s and Kelsey was asked to push and head delivered immediately after. One loose nuchal cord reduced at that time. Delivery Details Delivery Date: 12/26/24 Delivery Time: 08:43 Route of delivery: Gender: Female Infant Viability: Alive; Heart Rate Present Position at Delivery: OA Delivery Details: Delivered via spontaneous vaginal delivery. Infant was placed on maternal abdomen.? Cord was clamped and cut after a 30-60 second delay. Nose and mouth were bulb suctioned.? weight pending. 1 Minute Interval Total Score: 8 5 Minute Interval Total Score: [id number] Additional Details Shoulder Dystocia: No Placental Delivery Description: Spontaneous (I did manually remove from vagina as heavier bleeding was noted at that time. ) Delivery repair: Vicryl Procedure Done: Global Blood Loss: 700 (Brisk bleeding noted prior to removal of placenta, once placenta delivered, bimanual exam completed and removed a large amount of clots. Uterus felt well contracted. Will keep close monitoring. Visual inspection of placenta noted it to be complete. ) Laceration: Vaginal - 1st Degree (Bleeding.) Episiotomy Description: None Blood Loss Measurement Type: QBL Bakri Used: No Sponge/Need Count Correct: Yes Cord Vessel Description: 3 Vessels and Nuchal Cord Event Summary Status: Mother and were stable after delivery. Disposition: floor
[2024-12-26] MEDS: IBUPROFEN 600 MG TABLET PO ×2 (13:14→21:28)
[2024-12-26] MEDS: ACETAMINOPHEN 500 MG TABLET 1000 MG PO (18:39)
[2024-12-27 01:36] VITALS: BP 107/66; PULSE 82; RESP 16; TEMP 36.6; O2SAT 97
[2024-12-27 04:24] VITALS: BP 105/67; PULSE 78; RESP 16; O2SAT 97
[2024-12-27 06:31] LABS: Hemoglobin* 9.6 gm/dL (12.0-16.0)
[2024-12-27] MEDS: IBUPROFEN 600 MG TABLET PO (06:33)
[2024-12-27 08:25] VITALS: BP 125/57; PULSE 67; RESP 16; TEMP 36.3; O2SAT 97
[2024-12-27] MEDS: DOCUSATE SODIUM 100 MG CAPSULE PO (09:20)
[2024-12-27] MEDS: ACETAMINOPHEN 500 MG TABLET 1000 MG PO (09:24)
--- NOTE | 2024-12-27 10:04 | PM.OBDSVD1 ---
DS: Providers Provider Date Seen: 12/27/24 Date of admission: 12/26/24 00:47 Primary care physician: Not a Local Provider Admitting Clinician: Colleen Montemayor MD Attending Physician on discharge: Colleen Montemayor MD Date of Discharge: 12/27/24 DS: Diagnosis Discharge Diagnosis (1) Prediabetes: Status: Acute Problem details: 03/02 HgbA1C 5.9 (2) Vaginal delivery: Status: Acute Exam Narrative: Exam Narrative: Physical exam: General: No acute distress Psych: Alert and oriented x4, full affect HEENT: Normocephalic, atraumatic Heart: Regular rate and rhythm, no murmur rub or gallop Lungs: Clear to auscultation bilaterally Abdomen: Normoactive bowel sounds, soft, no tenderness, rebound, or guarding, no masses, no hepatosplenomegaly, no hernias Skin: No lesions or rashes Lower extremities: No edema or erythema Pelvic exam: Moderate lochia on pad Const: Vital Signs, click to edit/add: Vital Signs - 24 hr 12/26/24 10:12 12/26/24 10:12 12/26/24 10:27 Temperature Pulse Rate 74 78 Pulse Rate [Pulse Oximeter] Respiratory Rate 18 Blood Pressure 100/54 L 98/57 L Blood Pressure [Le ft Arm] Pulse Oximetry Oxygen Delivery Me thod 12/26/24 10:27 12/26/24 10:42 12/26/24 10:42 Temperature 98.1 F Pulse Rate 82 Pulse Rate [Pulse Oximeter] Respiratory Rate 18 18 Blood Pressure 98/54 L Blood Pressure [Le ft Arm] Pulse Oximetry Oxygen Delivery Me thod 12/26/24 10:57 12/26/24 14:30 12/26/24 18:40 Temperature 98.3 F 97.6 F Pulse Rate 98 Pulse Rate [Pulse Oximeter] 93 86 Respiratory Rate 16 16 Blood Pressure 109/63 Blood Pressure [Le ft Arm] 95/60 120/72 Pulse Oximetry 96 97 Oxygen Delivery Me thod Room Air Room Air 12/26/24 20:24 12/27/24 01:36 12/27/24 04:24 Temperature 98.2 F 98 F Pulse Rate Pulse Rate [Pulse Oximeter] 82 82 78 Respiratory Rate 16 16 16 Blood Pressure Blood Pressure [Le ft Arm] 110/71 107/66 105/67 Pulse Oximetry 97 97 97 Oxygen Delivery Me thod Room Air Room Air Room Air 12/27/24 08:25 Temperature 97.3 F L Pulse Rate Pulse Rate [Pulse Oximeter] 67 Respiratory Rate 16 Blood Pressure Blood Pressure [Le ft Arm] 125/57 L Pulse Oximetry 97 Oxygen Delivery Me thod Room Air OB - DS: Summary Hospital Course Hospital Course: The patient is a 24 year old at 40.0 weeks gestation that was admitted to the Center on 12/26/24 for spontaneous onset of labor. She had an uncomplicated vaginal delivery. She delivered a viable female infant. She is . the patient has done well. Overnight patient had no complaints. Her pain is well controlled on oral pain medications. She is tolerating a regular diet. She has passed flatus. She is ambulating without difficulty. Lochia is scant. She is urinating without rao. Patient denies chest pain, SOB, n/v, headache, RUQ pain, vision changes, dizziness. Infant Gender: Female Time Spent with Patient Time attestation: Total time spent providing and/or coordinating discharge services: Discharge Plan Discharge Disposition: Home, Self-Care Date of Admission: 12/26/24 00:47 Attending Provider on Discharge: Sybil Means Primary Care Provider: Provider,Not a Local Condition: Stable Anticipated Discharge Date/Time: 12/27/24 09:59 Discharge Medications: New Dermoplast (with menthol) 20-0.5 % Aerosol 1 spray topical QID PRNQty: 78 0RF acetaminophen 500 mg Tablet 1,000 mg PO Q6H PRN30 Days Qty: 30 0RF docusate sodium 100 mg Capsule 100 mg PO DAILY 30 Days Qty: 30 0RF ibuprofen 600 mg Tablet 600 mg PO Q6H PRN30 Days Qty: 30 0RF Lanolin (HPA) 100 % Cream 1 applic topical Q1H PRN30 Days Qty: 7 0RF Continued docusate sodium [Colace] 100 mg capsule 100 mg PO QDAY acyclovir 800 mg tablet 800 mg PO BID PRN Rx Instructions: Take 800 mg twice daily for 5 days with 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 DHA 200 mg capsule 1 mg PO DAILY ferrous sulfate [FeroSul] 325 mg (65 mg iron) tablet 325 mg PO QDAY Discharge Orders: Discharge Order (Routine); Ordered 12/27/24 Ordered By: Sybil B Vu Patient Education: Vaginal Delivery (DC), OB Vaginal/Breast Feeding Follow Up Appointments: Provider,Not a Local [Primary Care Provider, Family Practice] Forms: Smart Devices Info Instructions
== END 2024-12-27 12:20 | disposition home or self-care (01) | DRG 560 ==
LOC: OB OUT 00:47 → OB 00:47
PROVIDERS: Obstetrics & Gynecology; Admitting Provider Obstetrics & Gynecology; Visit Provider Obstetrics & Gynecology
DX: O99.892 Other specified diseases and conditions complicating childbirth (principal); R73.03 Prediabetes; O99.42 Diseases of the circulatory system complicating childbirth; I34.1 Nonrheumatic mitral (valve) prolapse; O70.0 First degree perineal laceration during delivery; Z3A.39 39 weeks gestation of pregnancy; Z37.0 Single live birth
CPT/HCPCS: 01967; 36415; 85018; 85025; 86592; G0463; A9270; J2795; J3010; J7120